=== PATIENT | female | born 1950 | race Caucasian/White ===

== ENCOUNTER 2023-11-24 13:20 | Inpatient (IN) | payer MEDICARE, OTHER ==
[~2023-11-24] VITALS: Ht 149.9 cm; Wt 97.1 kg
[2023-11-24 14:15] LABS: ABG BASE EXCESS -5.8 (-2.0-2.0); ABG HCO3 18.6 MMOL/L (22.0-26.0); ABG O2 SATURATION 96.5 % (95.0-99.0); ABG PARTIAL PRESSURE CO2 31.6 mmHg (35.0-45.0); ABG STANDARD HCO3 19.7 MMOL/L. (22.0-26.0); ABG TOTAL CO2 19.5 MMOL/L (23.0-31.0); ABG pH (ARTERIAL) 7.387 UNITS (7.350-7.450)
[2023-11-24 14:33] LABS: BASO % 0.5 % (0.0-1.0); EOS # 0.2 10^3/uL (0.0-0.5); EOS % 2.6 % (0.0-3.0); HEMATOCRIT 21.9 % (36.0-47.0); HEMOGLOBIN 7.1 g/dl (12.0-15.5); LYMPH # 1.1 10^3/uL (1.5-5.0); LYMPH % 18.5 % (24.0-44.0); MEAN CORPUSCULAR HEMOGLOBIN 28.6 pg (27.0-33.0); MEAN CORPUSCULAR HGB CONC 32.4 g/dl (32.0-36.5); MEAN CORPUSCULAR VOLUME 88.3 fl (80.0-96.0); MONO # 0.6 10^3/uL (0.0-0.8); MONO % 9.8 % (2.0-8.0); NEUTROPHILS % 67.7 % (36.0-66.0); PLATELET COUNT, AUTOMATED 281 10^3/uL (150-450); RED BLOOD COUNT 2.48 10^6/uL (4.00-5.40); WHITE BLOOD COUNT 5.8 10^3/uL (4.0-10.0)
[2023-11-24 14:53] LABS: CK-MB VALUE MASS 2.5 NG/ML (<3.6)
[2023-11-24 14:55] LABS: ALBUMIN 2.3 G/DL (3.2-5.2); ALKALINE PHOSPHATASE 138 U/L (46-116); ALT/SGPT 18 U/L (7.0-40); AST/SGOT 17 U/L (<34); BILIRUBIN,DIRECT < 0.1 MG/DL (<0.4); BILIRUBIN,TOTAL 0.3 MG/DL (0.3-1.2); BLOOD UREA NITROGEN 65 MG/DL (9-23); CALCIUM LEVEL 7.7 MG/DL (8.3-10.6); CARBON DIOXIDE LEVEL 21 MMOL/L (20-31); CHLORIDE LEVEL 111 MMOL/L (98-107); GLOMERULAR FILTRATION RATE 8.9 (>39); GLUCOSE, FASTING 113 MG/DL (74-106); POTASSIUM SERUM 4.5 MMOL/L (3.5-5.1); SODIUM LEVEL 142 MMOL/L (136-145); TOTAL PROTEIN 5.1 G/DL (5.7-8.2)
[2023-11-24 14:56] LABS: THYROXINE (T4) 11.9 UG/DL (4.5-10.9)
[2023-11-24 14:57] LABS: THYROID STIMULATING HORMONE 4.323 uIU/ML (0.55-4.78)
[2023-11-24 15:01] LABS: PROCALCITONIN 0.16 ng/ml
[2023-11-24 15:18] LABS: CPK CREATINE PHOSPHOKINASE 58 U/L (34-145); MB/CK RELATIVE INDEX 4.31 (< OR =4)
[2023-11-24] MEDS: cefTRIAXone SOD 1 GM in D5W MINI-BAG PLUS 50 ML IV ONE (16:15)
[2023-11-24] MEDS: hydrALAZINE 20MG/ML 1ML VIAL IV ONE (16:16)
[2023-11-24 16:21] LABS: CK-MB VALUE MASS 2.6 NG/ML (<3.6)
[2023-11-24] MEDS ORDERED: CALC1CAP PO (16:31)
[2023-11-24] MEDS ORDERED: ASPI81CH33 PO (16:31)
[2023-11-24] MEDS ORDERED: MONT10TA97 PO (16:31)
[2023-11-24] MEDS ORDERED: VIBE75TA PO (16:31)
[2023-11-24] MEDS ORDERED: PANT40TA29 PO (16:31)
[2023-11-24] MEDS ORDERED: GABA-284 PO (16:31)
[2023-11-24] MEDS ORDERED: CARV12.5 PO (16:31)
[2023-11-24] MEDS ORDERED: NIFE1TAB51 PO (16:31)
[2023-11-24] MEDS ORDERED: FERR325T3 PO (16:31)
[2023-11-24] MEDS ORDERED: NIFE90TA46 PO (16:31)
[2023-11-24] MEDS ORDERED: HYDR-161 PO ×2 (16:31)
[2023-11-24] MEDS ORDERED: BUPR1TAB52 PO (16:31)
[2023-11-24] MEDS ORDERED: AMIT25TA19 PO (16:31)
[2023-11-24] MEDS ORDERED: CRES40TA PO (16:31)
[2023-11-24] MEDS ORDERED: LEVO112T2 PO (16:31)
[2023-11-24] MEDS ORDERED: SEMA2PEN SQ (16:31)
[2023-11-24] MEDS: AZITHROMYCIN INJ 500 MG, VIAL MATE ADAPTER 1 EACH in D5W 250 ML IV ONE (17:14)
[2023-11-24] MEDS ORDERED: FUROSEMIDE 40MG/4ML VIAL IV ONE ×3 (18:10→18:15)
[2023-11-24] MEDS ORDERED: GLUCOSE 4GM CHEW TABLET PO PRN (18:20)
[2023-11-24] MEDS ORDERED: DEXTROSE 50% 50ML SYRINGE IV PRN (18:20)
[2023-11-24] MEDS ORDERED: GLUCAGON INJ 1MG VIAL SC PRN (18:20)
[2023-11-24] MEDS ORDERED: SENN-186 PO (18:52)
[2023-11-24] MEDS ORDERED: POLY17PO18 PO (18:52)
[2023-11-24] MEDS ORDERED: D 50CAP2 PO (18:52)
[2023-11-24] MEDS ORDERED: GABA-1171 PO (18:52)
[2023-11-24] MEDS ORDERED: PROB250C PO (18:52)
[2023-11-24] MEDS ORDERED: INSUHUMDS SC (18:52)
[2023-11-24] MEDS ORDERED: XALA0.007 OU (18:52)
[2023-11-24] MEDS ORDERED: FLON1SPR NARES (18:52)
[2023-11-24] MEDS ORDERED: CENT1TAB9 PO (18:52)
[2023-11-24] MEDS ORDERED: SODI650T PO (18:52)
[2023-11-24] MEDS ORDERED: ALBU8.5H INH (18:52)
[2023-11-24] MEDS ORDERED: FISH1CAP26 PO (18:52)
[2023-11-24] MEDS ORDERED: CREO3600 PO (18:52)
[2023-11-24] MEDS ORDERED: BRIM2OPD OD (18:52)
[2023-11-24] MEDS ORDERED: HOME MED LIST COMPLETE! XX SCH ×2 (19:05→20:15)
[2023-11-24] MEDS: FUROSEMIDE 100MG/10ML VIAL IV ONE (19:24)
[2023-11-24] MEDS ORDERED: MIRALAX *UNIT DOSE* 17GM PACKET PO PRN (19:50)
[2023-11-24] MEDS: INSULIN LISPRO (NovoLOG) PER UNIT SC SCH ×2 (19:53→21:07)
[2023-11-24] MEDS ORDERED: ALBUTEROL 90 MCG/ACT 8GM HFA INHALER INH PRN (20:00)
[2023-11-24] MEDS ORDERED: LEVO75TA4 PO (20:11)
[2023-11-24] MEDS: CARVedilol 12.5 MG TAB PO SCH (21:16)
[2023-11-24] MEDS: GABAPENTIN 100 MG CAP PO SCH (21:16)
[2023-11-24] MEDS: **hydrALAZINE** 50 MG TAB PO SCH (21:16)
[2023-11-24] MEDS: SENNA 8.6 MG TAB (SENOKOT) PO SCH (21:18)
[2023-11-24 22:34] VITALS: BP 166/61; TEMP 97.8
[2023-11-24 22:58] VITALS: BP 167/74; TEMP 98; O2SAT 96
[2023-11-24 23:46] VITALS: BP 176/88; TEMP 97.6; O2SAT 93
[2023-11-24 23:47] VITALS: BP 176/88; TEMP 97.6
[2023-11-25] VITALS (28 sets, daily range): BP systolic 160–220; BP diastolic 70–94; TEMP 97–99; O2SAT 91–98
[2023-11-25] MEDS: SODIUM BICARBONATE 325 MG TAB PO SCH (01:04)
[2023-11-25] MEDS: AMITRIPTYLINE 25MG TABLET PO SCH (01:04)
[2023-11-25] MEDS: OMEGA-3 1000MG CAPSULE PO SCH (01:04)
[2023-11-25] MEDS: HEPARIN SOD (PORCINE) 5000UNITS/ML 1ML VIAL/SYRINGE SC SCH (01:05)
[2023-11-25] MEDS: LATANOPROST 0.005% OPHTH SOLN 2.5 ML OU SCH (01:05)
[2023-11-25] MEDS: LABETALOL 100MG/20ML VIAL IV PRN (01:15)
[2023-11-25] MEDS: FUROSEMIDE 40MG/4ML VIAL IV ONE (02:31)
[2023-11-25] MEDS: hydrALAZINE 20MG/ML 1ML VIAL IV PRN (02:31)
[2023-11-25 04:52] LABS: HEMATOCRIT 23.6 % (36.0-47.0); HEMOGLOBIN 7.8 g/dl (12.0-15.5); MEAN CORPUSCULAR HEMOGLOBIN 28.9 pg (27.0-33.0); MEAN CORPUSCULAR HGB CONC 33.1 g/dl (32.0-36.5); MEAN CORPUSCULAR VOLUME 87.4 fl (80.0-96.0); PLATELET COUNT, AUTOMATED 239 10^3/uL (150-450); WHITE BLOOD COUNT 5.7 10^3/uL (4.0-10.0)
[2023-11-25 05:21] LABS: BLOOD UREA NITROGEN 62 MG/DL (9-23); CALCIUM LEVEL 7.5 MG/DL (8.3-10.6); CARBON DIOXIDE LEVEL 21 MMOL/L (20-31); CHLORIDE LEVEL 113 MMOL/L (98-107); CREATININE FOR GFR 4.97 MG/DL (0.55-1.30); GLOMERULAR FILTRATION RATE 9.1 (>39); GLUCOSE, FASTING 91 MG/DL (74-106); MAGNESIUM LEVEL 1.7 MG/DL (1.8-2.4); POTASSIUM SERUM 4.2 MMOL/L (3.5-5.1); SODIUM LEVEL 144 MMOL/L (136-145)
[2023-11-25] MEDS: LEVOTHYROXINE 75MCG TABLET (0.075MG) PO SCH (05:35)
[2023-11-25] MEDS: MAG SULF 1GM/100ML (MAG RUN) 1 GM in IV 1 EA IV ONE (06:57)
[2023-11-25] MEDS: FUROSEMIDE 100MG/10ML VIAL IV SCH (07:56)
[2023-11-25] MEDS: buPROPion (WELLBUTRIN SR) 100 MG SR TAB PO SCH (07:57)
[2023-11-25] MEDS: CALCIUM ACETATE 667MG GELCAP PO SCH (07:57)
[2023-11-25] MEDS: FERROUS SULFATE 325MG TAB PO SCH (07:57)
[2023-11-25] MEDS: ROSUVASTATIN 10 MG TAB (CRESTOR) PO SCH (07:57)
[2023-11-25] MEDS: MONTELUKAST 10 MG TAB PO SCH (07:58)
[2023-11-25] MEDS: PANTOPRAZOLE 40MG TAB (PROTONIX) PO SCH (07:59)
[2023-11-25] MEDS: BRIMONIDINE 0.15% OPHTH SOLN 5 ML OD SCH (07:59)
[2023-11-25] MEDS: FLUTICASONE PROP 0.05% NASAL SPRAY 16 GM (FLONASE) NARES SCH (07:59)
[2023-11-25] MEDS: ONDANSETRON 4MG 2ML VIAL IV PRN (08:09)
[2023-11-25 09:34] LABS: HEPATITIS B SURFACE ANTIBODY NEGATIVE (POSITIVE)
[2023-11-25 10:07] LABS: HEPATITIS B CORE ANTIBODY IGM NEGATIVE (NEGATIVE)
[2023-11-25 10:08] LABS: HEPATITIS C VIRUS ABY INDEX < 0.02 INDEX (<0.8)
[2023-11-26] VITALS (33 sets, daily range): BP systolic 130–194; BP diastolic 60–84; TEMP 97.4–98.3; O2SAT 16–98
[2023-11-26 05:35] LABS: HEMATOCRIT 21.6 % (36.0-47.0); HEMOGLOBIN 7.1 g/dl (12.0-15.5); MEAN CORPUSCULAR HEMOGLOBIN 29.2 pg (27.0-33.0); MEAN CORPUSCULAR HGB CONC 32.9 g/dl (32.0-36.5); MEAN CORPUSCULAR VOLUME 88.9 fl (80.0-96.0); PLATELET COUNT, AUTOMATED 203 10^3/uL (150-450); RED BLOOD COUNT 2.43 10^6/uL (4.00-5.40); WHITE BLOOD COUNT 5.5 10^3/uL (4.0-10.0)
[2023-11-26 06:00] LABS: CALCIUM LEVEL 7.8 MG/DL (8.3-10.6); CREATININE FOR GFR 5.17 MG/DL (0.55-1.30); GLOMERULAR FILTRATION RATE 8.7 (>39); MAGNESIUM LEVEL 1.8 MG/DL (1.8-2.4); POTASSIUM SERUM 4.3 MMOL/L (3.5-5.1)
[2023-11-26 08:30] LABS: PHOSPHORUS LEVEL 5.8 MG/DL (2.4-5.1)
[2023-11-26] MEDS: ACETAMINOPHEN 500 MG TAB PO PRN (22:58)
[2023-11-27] VITALS (31 sets, daily range): BP systolic 164–198; BP diastolic 70–88; TEMP 97.1–100.1; O2SAT 88–96
[2023-11-27 04:14] LABS: HEMATOCRIT 27.1 % (36.0-47.0); HEMOGLOBIN 8.9 g/dl (12.0-15.5); MEAN CORPUSCULAR HEMOGLOBIN 28.7 pg (27.0-33.0); MEAN CORPUSCULAR HGB CONC 32.8 g/dl (32.0-36.5); MEAN CORPUSCULAR VOLUME 87.4 fl (80.0-96.0); PLATELET COUNT, AUTOMATED 169 10^3/uL (150-450); WHITE BLOOD COUNT 5.6 10^3/uL (4.0-10.0)
[2023-11-27 04:38] LABS: CALCIUM LEVEL 7.4 MG/DL (8.3-10.6); CREATININE FOR GFR 5.4 MG/DL (0.55-1.30); GLOMERULAR FILTRATION RATE 8.3 (>39); MAGNESIUM LEVEL 1.7 MG/DL (1.8-2.4); POTASSIUM SERUM 4.4 MMOL/L (3.5-5.1)
[2023-11-27] MEDS: MAG SULF 1GM/100ML (MAG RUN) 1 GM in IV 1 EA IV ONE (09:08)
[2023-11-27 11:08] LABS: PERCENT SATURATION 14.2 % (13.2-45.0)
[2023-11-27 11:11] LABS: FERRITIN 720.3 NG/ML (7.3-270.7)
[2023-11-28] VITALS (13 sets, daily range): BP systolic 150–186; BP diastolic 64–80; TEMP 97.6–99.1; O2SAT 88–96
[2023-11-28] MEDS ORDERED: SODIUM CHLORIDE 0.9% 1000ML IV PRN (00:10)
[2023-11-28] MEDS ORDERED: HEPARIN 1,000UNITS/ML 10ML VIAL (FOR RADIOLOGY & DIALYSIS ONLY) IV PRN (00:10)
[2023-11-28] MEDS ORDERED: HEPARIN 1,000UNITS/ML 10ML VIAL (FOR RADIOLOGY & DIALYSIS ONLY) XX SCH (00:10)
[2023-11-28 04:14] LABS: HEMATOCRIT 27.7 % (36.0-47.0); HEMOGLOBIN 9.1 g/dl (12.0-15.5); MEAN CORPUSCULAR HEMOGLOBIN 28.5 pg (27.0-33.0); MEAN CORPUSCULAR HGB CONC 32.9 g/dl (32.0-36.5); MEAN CORPUSCULAR VOLUME 86.8 fl (80.0-96.0); PLATELET COUNT, AUTOMATED 177 10^3/uL (150-450); RED BLOOD COUNT 3.19 10^6/uL (4.00-5.40)
[2023-11-28 04:34] LABS: CALCIUM LEVEL 8.3 MG/DL (8.3-10.6); CREATININE FOR GFR 5.41 MG/DL (0.55-1.30); GLOMERULAR FILTRATION RATE 8.3 (>39); MAGNESIUM LEVEL 1.9 MG/DL (1.8-2.4); POTASSIUM SERUM 4.5 MMOL/L (3.5-5.1)
[2023-11-28] MEDS ORDERED: HEPARIN 1,000UNITS/ML 10ML VIAL (FOR RADIOLOGY & DIALYSIS ONLY) As Ordered ONE (08:57)
[2023-11-28] MEDS ORDERED: LIDOCAINE W/EPINEPHRINE 1% 20ML VIAL As Ordered ONE (08:58)
[2023-11-28] MEDS ORDERED: LIDOCAINE 1% MDV 20ML VIAL As Ordered ONE (08:58)
[2023-11-28] MEDS ORDERED: VANCOMYCIN 1000MG/20ML VIAL As Ordered ONE (09:37)
[2023-11-28] MEDS ORDERED: fentaNYL 100 MCG/2 ML INJECTION As Ordered ONE (09:40)
[2023-11-28] MEDS ORDERED: MIDAZOLAM INJ 2MG/2ML VIAL As Ordered ONE (09:40)
[2023-11-28] MEDS: VANCOMYCIN HCL 1,000 MG, VIAL MATE ADAPTER 1 EACH in D5W 250 ML IV ONE (09:49)
[2023-11-29] VITALS (18 sets, daily range): BP systolic 146–180; BP diastolic 62–77; TEMP 97.6–98.9; O2SAT 90–96
[2023-11-29 05:33] LABS: HEMATOCRIT 29.1 % (36.0-47.0); HEMOGLOBIN 9.3 g/dl (12.0-15.5); MEAN CORPUSCULAR HEMOGLOBIN 28.3 pg (27.0-33.0); MEAN CORPUSCULAR VOLUME 88.4 fl (80.0-96.0); PLATELET COUNT, AUTOMATED 184 10^3/uL (150-450); RED BLOOD COUNT 3.29 10^6/uL (4.00-5.40); WHITE BLOOD COUNT 6.1 10^3/uL (4.0-10.0)
[2023-11-29 05:58] LABS: CALCIUM LEVEL 7.9 MG/DL (8.3-10.6); CREATININE FOR GFR 4.1 MG/DL (0.55-1.30); GLOMERULAR FILTRATION RATE 11.4 (>39); MAGNESIUM LEVEL 1.7 MG/DL (1.8-2.4); POTASSIUM SERUM 4.2 MMOL/L (3.5-5.1)
[2023-11-29] MEDS ORDERED: HEPARIN 1,000UNITS/ML 10ML VIAL (FOR RADIOLOGY & DIALYSIS ONLY) XX SCH (06:30)
[2023-11-29] MEDS ORDERED: SODIUM CHLORIDE 0.9% 1000ML IV PRN (06:30)
[2023-11-29] MEDS ORDERED: HEPARIN 1,000UNITS/ML 10ML VIAL (FOR RADIOLOGY & DIALYSIS ONLY) IV PRN (06:30)
[2023-11-29] MEDS: IRON SUCROSE 100MG 5ML VIAL IV SCH (08:42)
[2023-11-29] MEDS: DARBEPOETIN 100MCG/0.5ML *DIALYSIS* SYRINGE IV SCH (10:28)
[2023-11-29] MEDS: LIDOCAINE 5% (LIDODERM) PATCH TD ONE (21:57)
[2023-11-30] VITALS (12 sets, daily range): BP systolic 136–188; BP diastolic 67–72; TEMP 97.4–98.7; O2SAT 90–98
[2023-11-30 05:44] LABS: HEMATOCRIT 30.6 % (36.0-47.0); HEMOGLOBIN 9.8 g/dl (12.0-15.5); MEAN CORPUSCULAR HEMOGLOBIN 28.2 pg (27.0-33.0); MEAN CORPUSCULAR VOLUME 87.9 fl (80.0-96.0); PLATELET COUNT, AUTOMATED 205 10^3/uL (150-450); RED BLOOD COUNT 3.48 10^6/uL (4.00-5.40); WHITE BLOOD COUNT 8.5 10^3/uL (4.0-10.0)
[2023-11-30 06:09] LABS: CALCIUM LEVEL 8.6 MG/DL (8.3-10.6); CREATININE FOR GFR 3.05 MG/DL (0.55-1.30); GLOMERULAR FILTRATION RATE 16.1 (>39); MAGNESIUM LEVEL 1.7 MG/DL (1.8-2.4); POTASSIUM SERUM 4.2 MMOL/L (3.5-5.1)
[2023-11-30] MEDS ORDERED: HEPARIN 1,000UNITS/ML 10ML VIAL (FOR RADIOLOGY & DIALYSIS ONLY) XX SCH (06:40)
[2023-11-30] MEDS ORDERED: HEPARIN 1,000UNITS/ML 10ML VIAL (FOR RADIOLOGY & DIALYSIS ONLY) IV PRN (06:40)
[2023-11-30] MEDS ORDERED: SODIUM CHLORIDE 0.9% 1000ML IV PRN (06:40)
[2023-11-30] MEDS: GABAPENTIN 100 MG CAP PO SCH (09:00)
[2023-11-30] MEDS: MAG SULF 1GM/100ML (MAG RUN) 1 GM in IV 1 EA IV ONE (12:08)
[2023-11-30] MEDS: **hydrALAZINE** 50 MG TAB PO SCH (15:06)
[2023-12-01 00:41] VITALS: BP 165/70; TEMP 97.7; O2SAT 93
[2023-12-01 03:31] VITALS: BP 144/68; TEMP 98.6; O2SAT 94
[2023-12-01 06:57] LABS: HEMATOCRIT 29.9 % (36.0-47.0); HEMOGLOBIN 9.6 g/dl (12.0-15.5); MEAN CORPUSCULAR HEMOGLOBIN 28.6 pg (27.0-33.0); MEAN CORPUSCULAR HGB CONC 32.1 g/dl (32.0-36.5); PLATELET COUNT, AUTOMATED 206 10^3/uL (150-450); RED BLOOD COUNT 3.36 10^6/uL (4.00-5.40); WHITE BLOOD COUNT 8.3 10^3/uL (4.0-10.0)
[2023-12-01 07:28] LABS: CALCIUM LEVEL 9.1 MG/DL (8.3-10.6); CREATININE FOR GFR 2.72 MG/DL (0.55-1.30); GLOMERULAR FILTRATION RATE 18.3 (>39); MAGNESIUM LEVEL 1.8 MG/DL (1.8-2.4); POTASSIUM SERUM 4.2 MMOL/L (3.5-5.1)
[2023-12-01 07:31] VITALS: BP 190/70; TEMP 97.7; O2SAT 94
[2023-12-01 08:36] VITALS: BP 158/70
[2023-12-01 09:50] VITALS: BP 158/70
[2023-12-01] MEDS ORDERED: HYDR100T PO (11:10)
[2023-12-01 12:26] VITALS: BP 150/67; TEMP 97.6; O2SAT 90
== END 2023-12-01 13:33 | disposition home health service (06) | DRG 291 ==
LOC: M ED 13:20 → EDBD 13:20 → M ED INP 17:21 → ENRESERV 22:28 → M PCU 23:34
PROVIDERS: ADMIT Internal Medicine; ATTEND Internal Medicine
PROC: 30233N1 Transfusion of Nonautologous Red Blood Cells into Peripheral Vein, Percutaneous Approach (ICD-10-PCS; 2023-11-24)
PROC: 05HY33Z Insertion of Infusion Device into Upper Vein, Percutaneous Approach (ICD-10-PCS; 2023-11-28)
PROC: 02HV33Z Insertion of Infusion Device into Superior Vena Cava, Percutaneous Approach (ICD-10-PCS; 2023-11-28)
PROC: 6A601ZZ Phototherapy of Skin, Multiple (ICD-10-PCS; 2023-11-28)
PROC: 0JH63XZ Insertion of Tunneled Vascular Access Device into Chest Subcutaneous Tissue and Fascia, Percutaneous Approach (ICD-10-PCS; principal; 2023-11-28 15:00)
DX: I13.2 Hypertensive heart and chronic kidney disease with heart failure and with stage 5 chronic kidney disease, or end stage renal disease (principal); N18.6 End stage renal disease; I50.31 Acute diastolic (congestive) heart failure; I16.9 Hypertensive crisis, unspecified; Z68.42 Body mass index [BMI] 45.0-49.9, adult; E66.01 Morbid (severe) obesity due to excess calories; E11.22 Type 2 diabetes mellitus with diabetic chronic kidney disease; E11.40 Type 2 diabetes mellitus with diabetic neuropathy, unspecified; E03.9 Hypothyroidism, unspecified; D63.1 Anemia in chronic kidney disease; K21.9 Gastro-esophageal reflux disease without esophagitis; Z85.42 Personal history of malignant neoplasm of other parts of uterus; Z88.2 Allergy status to sulfonamides; Z88.0 Allergy status to penicillin; Z79.899 Other long term (current) drug therapy; Z79.4 Long term (current) use of insulin; Z92.21 Personal history of antineoplastic chemotherapy; Z92.3 Personal history of irradiation; E78.5 Hyperlipidemia, unspecified

== ENCOUNTER 2023-12-04 14:29 | Inpatient (IN) | payer MEDICARE, OTHER ==
[~2023-12-04] VITALS: Ht 149.9 cm; Wt 97.2 kg
[~2023-12-04 14:29] MED LIST: ALBU8.5H INH; AMIT25TA19 PO; ASPI81CH33 PO; BRIM2OPD OD; BUPR1TAB52 PO; CALC1CAP PO; CARV12.5 PO; CENT1TAB9 PO; CREO3600 PO; CRES40TA PO; D 50CAP2 PO; FERR325T3 PO; FISH1CAP26 PO; FLON1SPR NARES; GABA-1171 PO; GABA-284 PO; HYDR-161 PO; HYDR100T PO; INSUHUMDS SC; LEVO112T2 PO; LEVO75TA4 PO; MONT10TA97 PO; NIFE1TAB51 PO; NIFE90TA46 PO; PANT40TA29 PO; POLY17PO18 PO; PROB250C PO; SEMA2PEN SQ; SENN-186 PO; SODI650T PO; VIBE75TA PO; XALA0.007 OU
[2023-12-04 16:11] LABS: BASO # 0.1 10^3/uL (0.0-0.2); BASO % 0.5 % (0.0-1.0); EOS # 0.3 10^3/uL (0.0-0.5); EOS % 1.9 % (0.0-3.0); HEMATOCRIT 33.8 % (36.0-47.0); HEMOGLOBIN 10.8 g/dl (12.0-15.5); LYMPH # 0.6 10^3/uL (1.5-5.0); LYMPH % 3.2 % (24.0-44.0); MEAN CORPUSCULAR HEMOGLOBIN 28.3 pg (27.0-33.0); MEAN CORPUSCULAR VOLUME 88.5 fl (80.0-96.0); MONO # 1.4 10^3/uL (0.0-0.8); MONO % 8.3 % (2.0-8.0); NEUTROPHILS % 81.2 % (36.0-66.0); PLATELET COUNT, AUTOMATED 277 10^3/uL (150-450); RED BLOOD COUNT 3.82 10^6/uL (4.00-5.40); WHITE BLOOD COUNT 17.2 10^3/uL (4.0-10.0)
[2023-12-04 16:26] LABS: LIPASE 18 U/L (12-53)
[2023-12-04 16:28] LABS: ALKALINE PHOSPHATASE 146 U/L (46-116); ALT/SGPT 14 U/L (7.0-40); AST/SGOT 17 U/L (<34); BILIRUBIN,DIRECT 0.1 MG/DL (<0.4); BILIRUBIN,TOTAL 0.3 MG/DL (0.3-1.2); BLOOD UREA NITROGEN 26 MG/DL (9-23); CALCIUM LEVEL 7.2 MG/DL (8.3-10.6); CARBON DIOXIDE LEVEL 28 MMOL/L (20-31); CHLORIDE LEVEL 101 MMOL/L (98-107); CK-MB VALUE MASS < 1.0 NG/ML (<3.6); CPK CREATINE PHOSPHOKINASE 19 U/L (34-145); CREATININE FOR GFR 3.47 MG/DL (0.55-1.30); GLOMERULAR FILTRATION RATE 13.8 (>39); GLUCOSE, FASTING 119 MG/DL (74-106); INR 1.24; MB/CK RELATIVE INDEX 5.26 (< OR =4); PARTIAL THROMBOPLASTIN TIME 35.2 SECONDS (24.8-34.2); POTASSIUM SERUM 3.3 MMOL/L (3.5-5.1); PROTHROMBIN TIME 15.2 SECONDS (12.5-14.5); SODIUM LEVEL 136 MMOL/L (136-145); TOTAL PROTEIN 5.2 G/DL (5.7-8.2)
[2023-12-04] MEDS: ONDANSETRON 4MG 2ML VIAL IV ONE (16:36)
[2023-12-04] MEDS ORDERED: VANCOMYCIN 125MG CAPSULE PO SCH (18:00)
[2023-12-04] MEDS ORDERED: DEXTROSE 50% 50ML SYRINGE IV PRN (19:00)
[2023-12-04] MEDS ORDERED: GLUCOSE 4 GM CHEW PO PRN (19:00)
[2023-12-04] MEDS ORDERED: GLUCAGON INJ 1MG VIAL SC PRN (19:00)
[2023-12-04] MEDS: MORPHINE 2 MG/ML 1ML VIAL IV ONE (19:09)
[2023-12-04] MEDS: NS 500 ML IV ONE (19:15)
[2023-12-04 19:21] LABS: MAGNESIUM LEVEL 1.7 MG/DL (1.8-2.4)
[2023-12-04] MEDS: POTASSIUM CHLORIDE 10MEQ SR TABLET PO ONE (19:31)
[2023-12-04] MEDS: metroNIDAZOLE 500 MG in IV 1 EA IV ONE (19:32)
[2023-12-04] MEDS: CIPROFLOXACIN 200 MG in IV 1 EA IV ONE (20:34)
[2023-12-04] MEDS: NS 1,000 ML IV SCH (20:34)
[2023-12-04] MEDS ORDERED: HYDR100T26 PO (20:52)
[2023-12-04] MEDS ORDERED: HOME MED LIST COMPLETE! XX SCH (20:55)
[2023-12-04] MEDS: ACETAMINOPHEN TAB 650MG DOSE (2X325MG) PO ONE (21:22)
[2023-12-04] MEDS: LACTOBACILLUS ACIDOPHILUS CAP (BACID) PO SCH (21:22)
[2023-12-04] MEDS: DOCUSATE SODIUM 100MG CAPSULE PO SCH (21:23)
[2023-12-04 21:38] VITALS: BP 138/63; TEMP 102.3; O2SAT 96
[2023-12-04 22:00] VITALS: O2SAT 97
[2023-12-04 22:03] LABS: IRON (FE) 9 UG/DL (50-170); PHOSPHORUS LEVEL 2.5 MG/DL (2.4-5.1)
[2023-12-04 22:05] LABS: FOLATE > 24.00 NG/ML (>5.4)
[2023-12-04 22:06] LABS: VITAMIN B12 LEVEL 1016 PG/ML (211-911)
[2023-12-04] MEDS: CEFEPIME HCL 1 GM in D5W MINI-BAG PLUS 50 ML IV SCH (22:09)
[2023-12-04 22:14] LABS: PROCALCITONIN 0.54 ng/ml
[2023-12-04 23:00] VITALS: O2SAT 96
[2023-12-04 23:12] VITALS: BP 126/98; TEMP 101.2; O2SAT 97
[2023-12-04] MEDS: INSULIN LISPRO (NovoLOG) PER UNIT SC SCH (23:20)
[2023-12-05] VITALS (25 sets, daily range): BP systolic 74–172; BP diastolic 32–84; TEMP 97.9–102.1; O2SAT 88–100
[2023-12-05] MEDS ORDERED: ALBUTEROL 90 MCG/ACT 8GM HFA INHALER INH PRN (00:05)
[2023-12-05] MEDS: GABAPENTIN 100 MG CAP PO SCH (00:35)
[2023-12-05] MEDS: MORPHINE 2 MG/ML 1ML VIAL IV ONE (00:35)
[2023-12-05] MEDS: **hydrALAZINE** 50 MG TAB PO SCH (00:36)
[2023-12-05] MEDS: AMITRIPTYLINE 25MG TABLET PO SCH (01:05)
[2023-12-05] MEDS: LATANOPROST 0.005% OPHTH SOLN 2.5 ML OU SCH (01:06)
[2023-12-05] MEDS: CARVedilol 12.5 MG TAB PO SCH (01:06)
[2023-12-05] MEDS ORDERED: MORPHINE 2 MG/ML 1ML VIAL IV PRN (03:00)
[2023-12-05] MEDS: metroNIDAZOLE 500 MG in IV 1 EA IV SCH (03:16)
[2023-12-05] MEDS: LIDOCAINE 5% (LIDODERM) PATCH TD SCH (03:17)
[2023-12-05] MEDS: LEVOTHYROXINE 75MCG TABLET (0.075MG) PO SCH (05:32)
[2023-12-05 05:37] LABS: HEMATOCRIT 27.3 % (36.0-47.0); MEAN CORPUSCULAR HEMOGLOBIN 28.3 pg (27.0-33.0); MEAN CORPUSCULAR HGB CONC 31.5 g/dl (32.0-36.5); MEAN CORPUSCULAR VOLUME 89.8 fl (80.0-96.0); PLATELET COUNT, AUTOMATED 211 10^3/uL (150-450); RED BLOOD COUNT 3.04 10^6/uL (4.00-5.40); WHITE BLOOD COUNT 15.2 10^3/uL (4.0-10.0)
[2023-12-05 05:51] LABS: HEMOGLOBIN 8.6 g/dl (12.0-15.5)
[2023-12-05] MEDS ORDERED: HEPARIN 1,000UNITS/ML 10ML VIAL (FOR RADIOLOGY & DIALYSIS ONLY) IV PRN (06:00)
[2023-12-05] MEDS ORDERED: SODIUM CHLORIDE 0.9% 1000ML IV PRN (06:00)
[2023-12-05] MEDS ORDERED: HEPARIN 1,000UNITS/ML 10ML VIAL (FOR RADIOLOGY & DIALYSIS ONLY) XX SCH (06:00)
[2023-12-05 06:10] LABS: PROCALCITONIN 0.91 ng/ml
[2023-12-05 06:11] LABS: ALBUMIN 1.4 G/DL (3.2-5.2); ALKALINE PHOSPHATASE 110 U/L (46-116); ALT/SGPT < 9 U/L (7.0-40); AST/SGOT 12 U/L (<34); BILIRUBIN,TOTAL 0.2 MG/DL (0.3-1.2); BLOOD UREA NITROGEN 32 MG/DL (9-23); CALCIUM LEVEL 6.7 MG/DL (8.3-10.6); CARBON DIOXIDE LEVEL 27 MMOL/L (20-31); CHLORIDE LEVEL 103 MMOL/L (98-107); CREATININE FOR GFR 3.72 MG/DL (0.55-1.30); GLOMERULAR FILTRATION RATE 12.8 (>39); GLUCOSE, FASTING 95 MG/DL (74-106); MAGNESIUM LEVEL 1.6 MG/DL (1.8-2.4); POTASSIUM SERUM 3.4 MMOL/L (3.5-5.1); SODIUM LEVEL 137 MMOL/L (136-145); TOTAL PROTEIN 4.1 G/DL (5.7-8.2)
[2023-12-05] MEDS: CREON-12 CAPSULE PO SCH (06:52)
[2023-12-05] MEDS: CALCIUM ACETATE 667MG GELCAP PO SCH (06:52)
[2023-12-05] MEDS: SENNA 8.6 MG TAB (SENOKOT) PO SCH (07:40)
[2023-12-05] MEDS ORDERED: FERROUS SULFATE 325MG TAB PO SCH (09:00)
[2023-12-05] MEDS ORDERED: CALCIUM ACETATE 667MG GELCAP PO SCH (09:00)
[2023-12-05] MEDS ORDERED: SODIUM BICARBONATE 325 MG TAB PO SCH (09:00)
[2023-12-05] MEDS: FLUTICASONE PROP 0.05% NASAL SPRAY 16 GM (FLONASE) NARES SCH (09:05)
[2023-12-05] MEDS: BRIMONIDINE 0.15% OPHTH SOLN 5 ML OD SCH (09:06)
[2023-12-05] MEDS: PERCOCET 5MG/325MG TAB PO PRN (09:07)
[2023-12-05] MEDS: FIDAXOMICIN 200 MG TAB (DIFICID) PO SCH (14:06)
[2023-12-05] MEDS: MONTELUKAST 10 MG TAB PO SCH (14:07)
[2023-12-05] MEDS: HEPARIN SOD (PORCINE) 5000UNITS/ML 1ML VIAL/SYRINGE SC SCH (14:08)
[2023-12-05] MEDS: PANTOPRAZOLE 40MG TAB (PROTONIX) PO SCH (14:08)
[2023-12-05] MEDS: buPROPion (WELLBUTRIN SR) 100 MG SR TAB PO SCH (14:09)
[2023-12-05] MEDS: ACETAMINOPHEN TAB 650MG DOSE (2X325MG) PO PRN (17:49)
[2023-12-05] MEDS ORDERED: CEFEPIME HCL 2 GM in D5W MINI-BAG PLUS 50 ML IV SCH (18:55)
[2023-12-05] MEDS ORDERED: VANCOMYCIN HCL 1,000 MG, VIAL MATE ADAPTER 1 EACH in D5W 250 ML IV SCH (19:00)
[2023-12-05] MEDS: CEFEPIME HCL 1 GM in D5W MINI-BAG PLUS 50 ML IV SCH (20:19)
[2023-12-05] MEDS: VANCOMYCIN HCL 1,000 MG, VIAL MATE ADAPTER 1 EACH in D5W 250 ML IV ONE ×2 (21:34→22:50)
[2023-12-05] MEDS: ACETAMINOPHEN TAB 650MG DOSE (2X325MG) PO ONE (21:37)
[2023-12-05] MEDS: UNRESOLVED PATIENT OWN MED ORDER XX SCH (23:19)
[2023-12-06] VITALS (9 sets, daily range): BP systolic 90–156; BP diastolic 38–68; TEMP 98.2–101.3; O2SAT 92–97
[2023-12-06] MEDS: NS 300 ML IV ONE (00:20)
[2023-12-06] MEDS: NS 500 ML IV ONE ×2 (11:41→14:21)
[2023-12-06] MEDS: MIDODRINE 5 MG TAB PO SCH (11:59)
[2023-12-06 13:56] LABS: IONIZED CALCIUM 4.3 MG/DL (4.5-5.3)
[2023-12-06 14:02] LABS: HEMATOCRIT 26.4 % (36.0-47.0); HEMOGLOBIN 8.6 g/dl (12.0-15.5); MEAN CORPUSCULAR HEMOGLOBIN 29.1 pg (27.0-33.0); MEAN CORPUSCULAR HGB CONC 32.6 g/dl (32.0-36.5); MEAN CORPUSCULAR VOLUME 89.2 fl (80.0-96.0); PLATELET COUNT, AUTOMATED 211 10^3/uL (150-450); RED BLOOD COUNT 2.96 10^6/uL (4.00-5.40); WHITE BLOOD COUNT 21.6 10^3/uL (4.0-10.0)
[2023-12-06] MEDS ORDERED: **hydrALAZINE** 50 MG TAB PO PRN (14:15)
[2023-12-06] MEDS: MIDODRINE 5 MG TAB PO ONE (14:21)
[2023-12-06 14:34] LABS: ALBUMIN 1.3 G/DL (3.2-5.2); ALKALINE PHOSPHATASE 137 U/L (46-116); ALT/SGPT < 9 U/L (7.0-40); AST/SGOT 9 U/L (<34); BILIRUBIN,TOTAL < 0.2 MG/DL (0.3-1.2); BLOOD UREA NITROGEN 25 MG/DL (9-23); CALCIUM LEVEL 7.4 MG/DL (8.3-10.6); CARBON DIOXIDE LEVEL 26 MMOL/L (20-31); CHLORIDE LEVEL 100 MMOL/L (98-107); CREATININE FOR GFR 3.07 MG/DL (0.55-1.30); GLOMERULAR FILTRATION RATE 15.9 (>39); GLUCOSE, FASTING 143 MG/DL (74-106); MAGNESIUM LEVEL 1.6 MG/DL (1.8-2.4); POTASSIUM SERUM 3.5 MMOL/L (3.5-5.1); SODIUM LEVEL 131 MMOL/L (136-145); TOTAL PROTEIN 4.1 G/DL (5.7-8.2)
[2023-12-06] MEDS: POTASSIUM CHLORIDE 10MEQ SR TABLET PO ONE (15:16)
[2023-12-06] MEDS: MAG SULF 1GM/100ML (MAG RUN) 1 GM in IV 1 EA IV ONE (15:17)
[2023-12-06 15:29] LABS: ANISOCYTOSIS 1+; BASOPHILS 3 % (0-1); EOSINOPHILS 2 % (0-3); HYPOCHROMASIA 1+; LYMPHOCYTES 5 % (16-44); MONOCYTES 3 % (0-5); NEUTROPHILS 83 % (28-66); PLATELET ESTIMATE NORMAL (NORMAL); POIKILOCYTOSIS 1+
[2023-12-06 15:30] LABS: POLYCHROMASIA 1+
[2023-12-06] MEDS: ONDANSETRON 4MG 2ML VIAL IV ONE (18:37)
[2023-12-07 02:00] VITALS: BP 94/44; TEMP 98; O2SAT 92
[2023-12-07 02:39] VITALS: BP 134/66
[2023-12-07 06:00] VITALS: BP 126/58; TEMP 98.6; O2SAT 93
[2023-12-07] MEDS ORDERED: HEPARIN 1,000UNITS/ML 10ML VIAL (FOR RADIOLOGY & DIALYSIS ONLY) IV PRN (06:00)
[2023-12-07] MEDS ORDERED: SODIUM CHLORIDE 0.9% 1000ML IV PRN (06:00)
[2023-12-07] MEDS ORDERED: HEPARIN 1,000UNITS/ML 10ML VIAL (FOR RADIOLOGY & DIALYSIS ONLY) XX SCH (06:00)
[2023-12-07 08:01] LABS: HEMATOCRIT 26.3 % (36.0-47.0); HEMOGLOBIN 8.5 g/dl (12.0-15.5); MEAN CORPUSCULAR HEMOGLOBIN 28.4 pg (27.0-33.0); MEAN CORPUSCULAR HGB CONC 32.3 g/dl (32.0-36.5); PLATELET COUNT, AUTOMATED 212 10^3/uL (150-450); RED BLOOD COUNT 2.99 10^6/uL (4.00-5.40); WHITE BLOOD COUNT 24.3 10^3/uL (4.0-10.0)
[2023-12-07 08:17] LABS: VANCOMYCIN RANDOM 18.6 UG/ML
[2023-12-07 08:18] LABS: CALCIUM LEVEL 7.4 MG/DL (8.3-10.6); CREATININE FOR GFR 4.01 MG/DL (0.55-1.30); GLOMERULAR FILTRATION RATE 11.7 (>39); MAGNESIUM LEVEL 1.7 MG/DL (1.8-2.4); POTASSIUM SERUM 3.6 MMOL/L (3.5-5.1)
[2023-12-07 08:30] LABS: ATYPICAL LYMPH 1 % (0-5); BASOPHILS 1 % (0-1); LYMPHOCYTES 8 % (16-44); MONOCYTES 8 % (0-5); NEUTROPHILS 76 % (28-66)
[2023-12-07 08:31] LABS: ANISOCYTOSIS 1+; HYPOCHROMASIA 1+; PLATELET ESTIMATE NORMAL (NORMAL); POLYCHROMASIA 1+
[2023-12-07 08:33] LABS: TEAR DROP CELLS 1+
[2023-12-07] MEDS ORDERED: ISOVUE-370 76% 100ML VIAL As Ordered ONE (08:48)
[2023-12-07 09:22] LABS: PROCALCITONIN 1.76 ng/ml
[2023-12-07] MEDS ORDERED: GASTROGRAFIN SOLUTION 30ML As Ordered ONE (12:54)
[2023-12-07] MEDS: GASTROGRAFIN SOLUTION 30ML PO SCH (13:08)
[2023-12-07] MEDS: CALCIUM ACETATE 667MG GELCAP PO SCH (13:09)
[2023-12-07 14:00] VITALS: BP 110/46; TEMP 98.5; O2SAT 88
[2023-12-07] MEDS ORDERED: VANCOMYCIN HCL 1,000 MG, VIAL MATE ADAPTER 1 EACH in D5W 250 ML IV SCH (16:00)
[2023-12-07 18:58] VITALS: BP 100/68; TEMP 101.5; O2SAT 92
[2023-12-07 20:55] VITALS: BP 142/58; TEMP 100.1; O2SAT 91
[2023-12-08] VITALS (8 sets, daily range): BP systolic 104–130; BP diastolic 50–78; TEMP 98.6–102; O2SAT 89–96
[2023-12-08 06:46] LABS: BASO # 0.2 10^3/uL (0.0-0.2); BASO % 0.6 % (0.0-1.0); EOS # 0.2 10^3/uL (0.0-0.5); EOS % 0.7 % (0.0-3.0); HEMATOCRIT 25.9 % (36.0-47.0); HEMOGLOBIN 8.3 g/dl (12.0-15.5); LYMPH # 0.7 10^3/uL (1.5-5.0); LYMPH % 2.8 % (24.0-44.0); MEAN CORPUSCULAR HEMOGLOBIN 28.3 pg (27.0-33.0); MEAN CORPUSCULAR VOLUME 88.4 fl (80.0-96.0); MONO # 1.7 10^3/uL (0.0-0.8); NEUTROPHILS # 20.4 10^3/uL (1.5-8.5); NEUTROPHILS % 82.8 % (36.0-66.0); PLATELET COUNT, AUTOMATED 214 10^3/uL (150-450); RED BLOOD COUNT 2.93 10^6/uL (4.00-5.40); WHITE BLOOD COUNT 24.6 10^3/uL (4.0-10.0)
[2023-12-08 07:09] LABS: CALCIUM LEVEL 7.6 MG/DL (8.3-10.6); CREATININE FOR GFR 2.86 MG/DL (0.55-1.30); GLOMERULAR FILTRATION RATE 17.3 (>39); MAGNESIUM LEVEL 1.7 MG/DL (1.8-2.4); POTASSIUM SERUM 3.3 MMOL/L (3.5-5.1)
[2023-12-08 11:39] LABS: C REACTIVE PROTEIN QUANTITATIV 26.3 MG/DL (<1.0)
[2023-12-08 12:12] LABS: PROCALCITONIN 4.36 ng/ml
[2023-12-08] MEDS: POTASSIUM CHLORIDE 10MEQ SR TABLET PO ONE (14:38)
[2023-12-08] MEDS: MAG SULF 1GM/100ML (MAG RUN) 1 GM in IV 1 EA IV ONE (14:39)
[2023-12-08 15:17] LABS: ERYTHROCYTE SEDIMENTATION RATE 46 mm/hr (0-30)
[2023-12-09 02:13] VITALS: BP 102/58; TEMP 99.9; O2SAT 93
[2023-12-09] MEDS ORDERED: HEPARIN 1,000UNITS/ML 10ML VIAL (FOR RADIOLOGY & DIALYSIS ONLY) XX SCH (05:35)
[2023-12-09] MEDS ORDERED: HEPARIN 1,000UNITS/ML 10ML VIAL (FOR RADIOLOGY & DIALYSIS ONLY) IV PRN (05:35)
[2023-12-09] MEDS ORDERED: SODIUM CHLORIDE 0.9% 1000ML IV PRN (05:35)
[2023-12-09 06:14] VITALS: BP 110/58; TEMP 99.6; O2SAT 90
[2023-12-09 07:00] LABS: HEMATOCRIT 27.3 % (36.0-47.0); HEMOGLOBIN 8.9 g/dl (12.0-15.5); MEAN CORPUSCULAR HEMOGLOBIN 28.9 pg (27.0-33.0); MEAN CORPUSCULAR HGB CONC 32.6 g/dl (32.0-36.5); MEAN CORPUSCULAR VOLUME 88.6 fl (80.0-96.0); PLATELET COUNT, AUTOMATED 240 10^3/uL (150-450); RED BLOOD COUNT 3.08 10^6/uL (4.00-5.40); WHITE BLOOD COUNT 27.4 10^3/uL (4.0-10.0)
[2023-12-09 07:32] LABS: CREATININE FOR GFR 3.9 MG/DL (0.55-1.30); GLOMERULAR FILTRATION RATE 12.1 (>39); POTASSIUM SERUM 4.1 MMOL/L (3.5-5.1)
[2023-12-09 07:42] LABS: ATYPICAL LYMPH 2 % (0-5); LYMPHOCYTES 2 % (16-44); MONOCYTES 2 % (0-5); NEUTROPHILS 78 % (28-66)
[2023-12-09 07:44] LABS: ANISOCYTOSIS 3+; PLATELET ESTIMATE NORMAL (NORMAL); POIKILOCYTOSIS 1+
[2023-12-09 07:46] LABS: PLATELET CLUMPS SMALL AMT; SCHISTOCYTES 2+
[2023-12-09 07:47] LABS: POLYCHROMASIA 1+
[2023-12-09 14:12] VITALS: BP 122/50; TEMP 98.6; O2SAT 93
[2023-12-09] MEDS: VANCOMYCIN 500MG/10ML VIAL PR SCH (14:59)
[2023-12-09 18:00] VITALS: BP 124/56; TEMP 98.2; O2SAT 92
[2023-12-09] MEDS: VANCOMYCIN 125MG CAPSULE PO SCH (21:00)
[2023-12-09 22:00] VITALS: BP 101/49; TEMP 97.8; O2SAT 95
[2023-12-10 02:00] VITALS: BP 115/56; TEMP 98; O2SAT 92
[2023-12-10 06:00] VITALS: BP 119/58; TEMP 99.8; O2SAT 90
[2023-12-10 06:27] LABS: BASO # 0.2 10^3/uL (0.0-0.2); BASO % 0.6 % (0.0-1.0); EOS # 0.4 10^3/uL (0.0-0.5); EOS % 1.4 % (0.0-3.0); HEMATOCRIT 25.4 % (36.0-47.0); HEMOGLOBIN 8.1 g/dl (12.0-15.5); LYMPH % 3.9 % (24.0-44.0); MEAN CORPUSCULAR HEMOGLOBIN 28.5 pg (27.0-33.0); MEAN CORPUSCULAR HGB CONC 31.9 g/dl (32.0-36.5); MEAN CORPUSCULAR VOLUME 89.4 fl (80.0-96.0); MONO # 1.8 10^3/uL (0.0-0.8); MONO % 6.7 % (2.0-8.0); NEUTROPHILS # 22.2 10^3/uL (1.5-8.5); NEUTROPHILS % 82.9 % (36.0-66.0); PLATELET COUNT, AUTOMATED 249 10^3/uL (150-450); RED BLOOD COUNT 2.84 10^6/uL (4.00-5.40); WHITE BLOOD COUNT 26.7 10^3/uL (4.0-10.0)
[2023-12-10 06:49] LABS: CALCIUM LEVEL 7.6 MG/DL (8.3-10.6); CREATININE FOR GFR 2.78 MG/DL (0.55-1.30); GLOMERULAR FILTRATION RATE 17.8 (>39); MAGNESIUM LEVEL 1.8 MG/DL (1.8-2.4); POTASSIUM SERUM 4.5 MMOL/L (3.5-5.1)
[2023-12-10 08:00] VITALS: BP 130/59; TEMP 99.6; O2SAT 92
[2023-12-10] MEDS ORDERED: LORazepam 2 MG/ML 1ML VIAL IV STA (09:21)
[2023-12-10 13:56] VITALS: BP 133/54; TEMP 98.8; O2SAT 97
[2023-12-10 18:13] VITALS: BP 121/53; TEMP 100.9; O2SAT 94
[2023-12-10] MEDS: MOM 30ML SUSPENSION UDC PO ONE (18:25)
[2023-12-10] MEDS: MIRALAX *UNIT DOSE* 17GM PACKET PO SCH (18:26)
[2023-12-10] MEDS: FIDAXOMICIN 200 MG TAB (DIFICID) PO SCH (20:26)
[2023-12-10 22:00] VITALS: BP 120/54; TEMP 99.5; O2SAT 95
[2023-12-11] VITALS (13 sets, daily range): BP systolic 72–108; BP diastolic 38–79; TEMP 93.3–100.8; O2SAT 94–97
[2023-12-11 06:49] LABS: BASO # 0.2 10^3/uL (0.0-0.2); BASO % 0.6 % (0.0-1.0); EOS # 0.3 10^3/uL (0.0-0.5); EOS % 1.1 % (0.0-3.0); HEMATOCRIT 24.2 % (36.0-47.0); HEMOGLOBIN 7.4 g/dl (12.0-15.5); LYMPH # 1.8 10^3/uL (1.5-5.0); LYMPH % 6.6 % (24.0-44.0); MEAN CORPUSCULAR HEMOGLOBIN 27.6 pg (27.0-33.0); MEAN CORPUSCULAR HGB CONC 30.6 g/dl (32.0-36.5); MEAN CORPUSCULAR VOLUME 90.3 fl (80.0-96.0); MONO # 1.7 10^3/uL (0.0-0.8); MONO % 6.6 % (2.0-8.0); NEUTROPHILS % 79.7 % (36.0-66.0); PLATELET COUNT, AUTOMATED 229 10^3/uL (150-450); RED BLOOD COUNT 2.68 10^6/uL (4.00-5.40); WHITE BLOOD COUNT 26.3 10^3/uL (4.0-10.0)
[2023-12-11 07:25] LABS: CALCIUM LEVEL 7.1 MG/DL (8.3-10.6); CREATININE FOR GFR 3.85 MG/DL (0.55-1.30); GLOMERULAR FILTRATION RATE 12.2 (>39); POTASSIUM SERUM 4.4 MMOL/L (3.5-5.1)
[2023-12-11] MEDS: GEMTESA 75 MG PO SCH (09:00)
[2023-12-11] MEDS: MOM 30ML SUSPENSION UDC PO SCH (09:00)
[2023-12-11] MEDS: LACTULOSE 20GM/30ML SYRUP UDC PO STA (10:00)
[2023-12-11] MEDS: D5W/0.45% SODIUM CHLORIDE 1,000 ML IV SCH (10:16)
[2023-12-11] MEDS: FECAL MICROBIOTA TRANSPLANT PREPARATION 35ML BAG XX SCH (14:00)
[2023-12-11] MEDS ORDERED: propofoL 200 MG/20 ML VIAL As Ordered ONE (14:12)
[2023-12-11] MEDS ORDERED: LIDOCAINE 2% 100MG/5ML SDV (FOR ANES.) As Ordered ONE (14:12)
[2023-12-11] MEDS: NS 1,000 ML IV ONE ×2 (17:37→19:36)
[2023-12-11] MEDS: MIDODRINE 5 MG TAB PO ONE ×2 (17:40→19:37)
[2023-12-12] VITALS (17 sets, daily range): BP systolic 60–164; BP diastolic 38–89; TEMP 96–98.7; O2SAT 90–98
[2023-12-12] MEDS: NS 500 ML IV ONE (03:00)
[2023-12-12] MEDS: PERCOCET 5MG/325MG TAB PO PRN (03:07)
[2023-12-12] MEDS: NS 250 ML IV ONE ×2 (06:38)
[2023-12-12] MEDS: MIDODRINE 5 MG TAB PO SCH (06:45)
[2023-12-12 06:51] LABS: BASO # 0.1 10^3/uL (0.0-0.2); BASO % 0.6 % (0.0-1.0); EOS # 0.4 10^3/uL (0.0-0.5); EOS % 1.7 % (0.0-3.0); HEMOGLOBIN 7.7 g/dl (12.0-15.5); LYMPH # 1.8 10^3/uL (1.5-5.0); LYMPH % 7.9 % (24.0-44.0); MEAN CORPUSCULAR HEMOGLOBIN 28.5 pg (27.0-33.0); MEAN CORPUSCULAR HGB CONC 30.8 g/dl (32.0-36.5); MEAN CORPUSCULAR VOLUME 92.6 fl (80.0-96.0); MONO # 1.7 10^3/uL (0.0-0.8); MONO % 7.7 % (2.0-8.0); NEUTROPHILS # 17.2 10^3/uL (1.5-8.5); NEUTROPHILS % 76.4 % (36.0-66.0); PLATELET COUNT, AUTOMATED 217 10^3/uL (150-450); WHITE BLOOD COUNT 22.5 10^3/uL (4.0-10.0)
[2023-12-12 07:14] LABS: CALCIUM LEVEL 7.5 MG/DL (8.3-10.6); CREATININE FOR GFR 4.28 MG/DL (0.55-1.30); GLOMERULAR FILTRATION RATE 10.8 (>39); MAGNESIUM LEVEL 2.2 MG/DL (1.8-2.4); POTASSIUM SERUM 4.3 MMOL/L (3.5-5.1)
[2023-12-12] MEDS ORDERED: HEPARIN 1,000UNITS/ML 10ML VIAL (FOR RADIOLOGY & DIALYSIS ONLY) XX SCH (07:20)
[2023-12-12] MEDS ORDERED: SODIUM CHLORIDE 0.9% 1000ML IV PRN (07:20)
[2023-12-12] MEDS ORDERED: HEPARIN 1,000UNITS/ML 10ML VIAL (FOR RADIOLOGY & DIALYSIS ONLY) IV PRN (07:20)
[2023-12-12] MEDS: DARBEPOETIN 100MCG/0.5ML *DIALYSIS* SYRINGE IV SCH (08:40)
[2023-12-12] MEDS: ALBUTEROL SULFATE 2.5MG/0.5ML INH NEB SOLN NEB PRN (20:13)
[2023-12-12] MEDS: INSULIN LISPRO (NovoLOG) PER UNIT SC SCH (21:00)
[2023-12-12] MEDS ORDERED: HumuLIN R (REGULAR) INSULIN (NovoLIN R) **100U/ML** PER UNIT SC SCH (21:00)
[2023-12-13 02:00] VITALS: BP 118/59; TEMP 98.6; O2SAT 96
[2023-12-13 04:51] VITALS: BP 120/59; TEMP 98.8; O2SAT 96
[2023-12-13 06:42] LABS: BASO # 0.2 10^3/uL (0.0-0.2); BASO % 0.8 % (0.0-1.0); EOS # 0.4 10^3/uL (0.0-0.5); EOS % 2.2 % (0.0-3.0); HEMATOCRIT 27.7 % (36.0-47.0); HEMOGLOBIN 8.8 g/dl (12.0-15.5); LYMPH # 1.1 10^3/uL (1.5-5.0); MEAN CORPUSCULAR HEMOGLOBIN 28.8 pg (27.0-33.0); MEAN CORPUSCULAR HGB CONC 31.8 g/dl (32.0-36.5); MEAN CORPUSCULAR VOLUME 90.5 fl (80.0-96.0); MONO # 1.3 10^3/uL (0.0-0.8); MONO % 6.8 % (2.0-8.0); NEUTROPHILS # 15.2 10^3/uL (1.5-8.5); NEUTROPHILS % 80.7 % (36.0-66.0); PLATELET COUNT, AUTOMATED 230 10^3/uL (150-450); RED BLOOD COUNT 3.06 10^6/uL (4.00-5.40); WHITE BLOOD COUNT 18.9 10^3/uL (4.0-10.0)
[2023-12-13 07:09] LABS: ALBUMIN 1.3 G/DL (3.2-5.2); BILIRUBIN,TOTAL 0.2 MG/DL (0.3-1.2); CALCIUM LEVEL 7.9 MG/DL (8.3-10.6); CREATININE FOR GFR 2.82 MG/DL (0.55-1.30); GLOMERULAR FILTRATION RATE 17.5 (>39); PHOSPHORUS LEVEL 1.5 MG/DL (2.4-5.1); POTASSIUM SERUM 4.1 MMOL/L (3.5-5.1); TOTAL PROTEIN 4.6 G/DL (5.7-8.2)
[2023-12-13] MEDS: INSULIN LISPRO (NovoLOG) PER UNIT SC SCH (07:30)
[2023-12-13] MEDS ORDERED: HumuLIN R (REGULAR) INSULIN (NovoLIN R) **100U/ML** PER UNIT SC SCH (07:30)
[2023-12-13 10:00] VITALS: BP 100/70; TEMP 98.8; O2SAT 90
[2023-12-13] MEDS: SODIUM PHOSPHATE INJ 30 MMOL in D5W 500 ML IV ONE (12:00)
[2023-12-13 14:00] VITALS: BP 98/52; TEMP 97.7; O2SAT 90
[2023-12-13] MEDS ORDERED: ALBUTEROL SULFATE 2.5MG/0.5ML INH NEB SOLN NEB PRN (15:10)
[2023-12-13 15:48] LABS: BASO # 0.2 10^3/uL (0.0-0.2); BASO % 1.1 % (0.0-1.0); EOS # 0.4 10^3/uL (0.0-0.5); EOS % 2.2 % (0.0-3.0); HEMATOCRIT 28.3 % (36.0-47.0); HEMOGLOBIN 8.8 g/dl (12.0-15.5); LYMPH # 1.1 10^3/uL (1.5-5.0); LYMPH % 6.4 % (24.0-44.0); MEAN CORPUSCULAR HEMOGLOBIN 28.6 pg (27.0-33.0); MEAN CORPUSCULAR HGB CONC 31.1 g/dl (32.0-36.5); MEAN CORPUSCULAR VOLUME 91.9 fl (80.0-96.0); MONO # 0.9 10^3/uL (0.0-0.8); MONO % 5.3 % (2.0-8.0); NEUTROPHILS # 13.7 10^3/uL (1.5-8.5); NEUTROPHILS % 82.3 % (36.0-66.0); PLATELET COUNT, AUTOMATED 234 10^3/uL (150-450); RED BLOOD COUNT 3.08 10^6/uL (4.00-5.40); WHITE BLOOD COUNT 16.6 10^3/uL (4.0-10.0)
[2023-12-13 16:17] LABS: CALCIUM LEVEL 7.7 MG/DL (8.3-10.6); CREATININE FOR GFR 3.23 MG/DL (0.55-1.30); POTASSIUM SERUM 4.1 MMOL/L (3.5-5.1)
[2023-12-13 17:56] VITALS: BP 108/66; TEMP 98.6; O2SAT 90
[2023-12-13] MEDS: BUDESONIDE 0.5 MG/2 ML INHALATION SUSPENSION NEB SCH (19:19)
[2023-12-13] MEDS: IPRATROPIUM 0.5MG/ALBUTEROL 2.5MG INH SOL UD 3ML (DUONEB) NEB PRN (19:19)
[2023-12-13 21:00] VITALS: BP 110/65; TEMP 97.7; O2SAT 97
[2023-12-14] VITALS (8 sets, daily range): BP systolic 90–152; BP diastolic 44–59; TEMP 98.1–100; O2SAT 91–96
[2023-12-14] MEDS ORDERED: HEPARIN 1,000UNITS/ML 10ML VIAL (FOR RADIOLOGY & DIALYSIS ONLY) XX SCH (05:15)
[2023-12-14] MEDS ORDERED: HEPARIN 1,000UNITS/ML 10ML VIAL (FOR RADIOLOGY & DIALYSIS ONLY) IV PRN (05:15)
[2023-12-14] MEDS ORDERED: SODIUM CHLORIDE 0.9% 1000ML IV PRN (05:15)
[2023-12-14] MEDS: MIRALAX *UNIT DOSE* 17GM PACKET PO PRN (05:58)
[2023-12-14] MEDS: ASPIRIN 81MG CHEW TABLET PO PRN (05:59)
[2023-12-14 06:45] LABS: C REACTIVE PROTEIN QUANTITATIV 9.9 MG/DL (<1.0)
[2023-12-14 06:46] LABS: MAGNESIUM LEVEL 1.9 MG/DL (1.8-2.4)
[2023-12-14 08:59] LABS: CALCIUM LEVEL 7.3 MG/DL (8.3-10.6); CREATININE FOR GFR 3.68 MG/DL (0.55-1.30); GLOMERULAR FILTRATION RATE 12.9 (>39); PHOSPHORUS LEVEL 2.7 MG/DL (2.4-5.1)
[2023-12-15 02:00] VITALS: BP 145/59; TEMP 97.7; O2SAT 94
[2023-12-15 06:00] VITALS: BP 120/78; TEMP 100.1; O2SAT 93
[2023-12-15 06:07] LABS: BASO # 0.1 10^3/uL (0.0-0.2); EOS # 0.3 10^3/uL (0.0-0.5); HEMATOCRIT 25.9 % (36.0-47.0); HEMOGLOBIN 8.3 g/dl (12.0-15.5); LYMPH # 0.9 10^3/uL (1.5-5.0); LYMPH % 6.9 % (24.0-44.0); MEAN CORPUSCULAR HEMOGLOBIN 28.3 pg (27.0-33.0); MEAN CORPUSCULAR VOLUME 88.4 fl (80.0-96.0); MONO % 7.1 % (2.0-8.0); NEUTROPHILS # 11.1 10^3/uL (1.5-8.5); PLATELET COUNT, AUTOMATED 245 10^3/uL (150-450); RED BLOOD COUNT 2.93 10^6/uL (4.00-5.40); WHITE BLOOD COUNT 13.7 10^3/uL (4.0-10.0)
[2023-12-15 06:31] LABS: CALCIUM LEVEL 7.6 MG/DL (8.3-10.6); CREATININE FOR GFR 2.6 MG/DL (0.55-1.30); GLOMERULAR FILTRATION RATE 19.3 (>39); MAGNESIUM LEVEL 1.9 MG/DL (1.8-2.4); PHOSPHORUS LEVEL 1.9 MG/DL (2.4-5.1); POTASSIUM SERUM 4.2 MMOL/L (3.5-5.1)
[2023-12-15 10:00] VITALS: BP 120/60; TEMP 97.7; O2SAT 91
[2023-12-15 14:00] VITALS: BP 122/58; TEMP 98.4; O2SAT 97
[2023-12-15] MEDS: SODIUM PHOSPHATE INJ 30 MMOL in D5W 500 ML IV ONE (17:00)
[2023-12-15 20:29] VITALS: BP 158/70; TEMP 98.6; O2SAT 96
[2023-12-16] MEDS ORDERED: HEPARIN 1,000UNITS/ML 10ML VIAL (FOR RADIOLOGY & DIALYSIS ONLY) IV PRN (05:55)
[2023-12-16] MEDS ORDERED: HEPARIN 1,000UNITS/ML 10ML VIAL (FOR RADIOLOGY & DIALYSIS ONLY) XX SCH (05:55)
[2023-12-16] MEDS ORDERED: SODIUM CHLORIDE 0.9% 1000ML IV PRN (05:55)
[2023-12-16 06:34] VITALS: BP 122/60; TEMP 98.2; O2SAT 97
[2023-12-16 06:47] LABS: BASO # 0.1 10^3/uL (0.0-0.2); BASO % 1.3 % (0.0-1.0); EOS # 0.3 10^3/uL (0.0-0.5); EOS % 2.8 % (0.0-3.0); HEMATOCRIT 25.6 % (36.0-47.0); HEMOGLOBIN 8.1 g/dl (12.0-15.5); LYMPH % 8.8 % (24.0-44.0); MEAN CORPUSCULAR HEMOGLOBIN 28.2 pg (27.0-33.0); MEAN CORPUSCULAR HGB CONC 31.6 g/dl (32.0-36.5); MEAN CORPUSCULAR VOLUME 89.2 fl (80.0-96.0); MONO # 0.8 10^3/uL (0.0-0.8); MONO % 7.2 % (2.0-8.0); NEUTROPHILS # 8.5 10^3/uL (1.5-8.5); NEUTROPHILS % 78.2 % (36.0-66.0); PLATELET COUNT, AUTOMATED 256 10^3/uL (150-450); RED BLOOD COUNT 2.87 10^6/uL (4.00-5.40); WHITE BLOOD COUNT 10.9 10^3/uL (4.0-10.0)
[2023-12-16 07:14] LABS: C REACTIVE PROTEIN QUANTITATIV 5.2 MG/DL (<1.0)
[2023-12-16 07:21] LABS: ALBUMIN 1.2 G/DL (3.2-5.2); BILIRUBIN,TOTAL 0.2 MG/DL (0.3-1.2); CALCIUM LEVEL 7.4 MG/DL (8.3-10.6); CREATININE FOR GFR 3.35 MG/DL (0.55-1.30); GLOMERULAR FILTRATION RATE 14.4 (>39); MAGNESIUM LEVEL 1.9 MG/DL (1.8-2.4); PHOSPHORUS LEVEL 2.3 MG/DL (2.4-5.1); TOTAL PROTEIN 4.5 G/DL (5.7-8.2)
[2023-12-16 14:00] VITALS: BP 118/52; TEMP 98.6; O2SAT 95
[2023-12-16 19:51] VITALS: BP 154/58; TEMP 98.6; O2SAT 94
[2023-12-17 04:44] VITALS: BP 118/54; TEMP 98.1; O2SAT 97
[2023-12-17 14:00] VITALS: BP 108/64; TEMP 97.9; O2SAT 98
[2023-12-17 20:40] VITALS: BP 112/58; TEMP 98.1; O2SAT 97
[2023-12-18 04:14] VITALS: BP 118/58; TEMP 98.1; O2SAT 96
[2023-12-18 07:14] LABS: BASO # 0.1 10^3/uL (0.0-0.2); BASO % 1.5 % (0.0-1.0); EOS # 0.4 10^3/uL (0.0-0.5); EOS % 5.1 % (0.0-3.0); HEMATOCRIT 28.1 % (36.0-47.0); LYMPH # 1.2 10^3/uL (1.5-5.0); LYMPH % 14.4 % (24.0-44.0); MEAN CORPUSCULAR HEMOGLOBIN 29.5 pg (27.0-33.0); MEAN CORPUSCULAR VOLUME 92.1 fl (80.0-96.0); MONO # 0.6 10^3/uL (0.0-0.8); MONO % 6.5 % (2.0-8.0); NEUTROPHILS # 6.1 10^3/uL (1.5-8.5); NEUTROPHILS % 71.1 % (36.0-66.0); PLATELET COUNT, AUTOMATED 304 10^3/uL (150-450); RED BLOOD COUNT 3.05 10^6/uL (4.00-5.40); WHITE BLOOD COUNT 8.6 10^3/uL (4.0-10.0)
[2023-12-18 07:40] LABS: ALBUMIN 1.5 G/DL (3.2-5.2); BILIRUBIN,TOTAL 0.2 MG/DL (0.3-1.2); CALCIUM LEVEL 7.1 MG/DL (8.3-10.6); CREATININE FOR GFR 3.11 MG/DL (0.55-1.30); GLOMERULAR FILTRATION RATE 15.7 (>39); MAGNESIUM LEVEL 1.9 MG/DL (1.8-2.4); PHOSPHORUS LEVEL 2.2 MG/DL (2.4-5.1)
[2023-12-18 10:15] VITALS: BP 138/80; TEMP 98.1; O2SAT 98
[2023-12-18 13:50] VITALS: BP 118/70; TEMP 98.1; O2SAT 92
[2023-12-18 16:45] VITALS: BP 110/55
[2023-12-18 18:00] VITALS: BP 118/58; TEMP 97.2; O2SAT 98
[2023-12-18 21:05] VITALS: BP 148/58; TEMP 97.9; O2SAT 96
[2023-12-19] VITALS (8 sets, daily range): BP systolic 130–157; BP diastolic 61–70; TEMP 97.9–98.4; O2SAT 92–98
[2023-12-19] MEDS ORDERED: HEPARIN 1,000UNITS/ML 10ML VIAL (FOR RADIOLOGY & DIALYSIS ONLY) IV PRN (06:00)
[2023-12-19] MEDS ORDERED: SODIUM CHLORIDE 0.9% 1000ML IV PRN (06:00)
[2023-12-19 07:20] LABS: ALBUMIN 1.3 G/DL (3.2-5.2); ALKALINE PHOSPHATASE 358 U/L (46-116); ALT/SGPT 23 U/L (7.0-40); AST/SGOT 23 U/L (<34); BILIRUBIN,TOTAL < 0.2 MG/DL (0.3-1.2); BLOOD UREA NITROGEN 42 MG/DL (9-23); CALCIUM LEVEL 7.1 MG/DL (8.3-10.6); CARBON DIOXIDE LEVEL 23 MMOL/L (20-31); CHLORIDE LEVEL 108 MMOL/L (98-107); GLOMERULAR FILTRATION RATE 14.6 (>39); GLUCOSE, FASTING 73 MG/DL (74-106); MAGNESIUM LEVEL 1.8 MG/DL (1.8-2.4); PHOSPHORUS LEVEL 2.6 MG/DL (2.4-5.1); POTASSIUM SERUM 4.9 MMOL/L (3.5-5.1); SODIUM LEVEL 139 MMOL/L (136-145); TOTAL PROTEIN 5.1 G/DL (5.7-8.2)
[2023-12-19] MEDS: DARBEPOETIN 200MCG/0.4ML *DIALYSIS* SYRINGE IV SCH (08:28)
[2023-12-19] MEDS: MAGNESIUM CITRATE 300ML BTL PO ONE (17:06)
[2023-12-19] MEDS: ONDANSETRON 4MG 2ML VIAL IV PRN (18:33)
[2023-12-20] VITALS (11 sets, daily range): BP systolic 130–165; BP diastolic 61–72; TEMP 97.7–98.4; O2SAT 65–97
[2023-12-20] MEDS: MAGNESIUM CITRATE 300ML BTL PO ONE (05:48)
[2023-12-20 07:51] LABS: HEMATOCRIT 27.2 % (36.0-47.0); HEMOGLOBIN 8.7 g/dl (12.0-15.5); MEAN CORPUSCULAR VOLUME 90.7 fl (80.0-96.0); PLATELET COUNT, AUTOMATED 299 10^3/uL (150-450); WHITE BLOOD COUNT 6.4 10^3/uL (4.0-10.0)
[2023-12-20 08:22] LABS: ALBUMIN 1.5 G/DL (3.2-5.2); BILIRUBIN,TOTAL 0.2 MG/DL (0.3-1.2); CALCIUM LEVEL 7.4 MG/DL (8.3-10.6); CREATININE FOR GFR 2.25 MG/DL (0.55-1.30); GLOMERULAR FILTRATION RATE 22.8 (>39); POTASSIUM SERUM 3.9 MMOL/L (3.5-5.1); TOTAL PROTEIN 5.2 G/DL (5.7-8.2)
[2023-12-20] MEDS: DIAPER RELIEF PASTE (DESITIN) 60GM TOP PRN (08:22)
[2023-12-20] MEDS: FECAL MICROBIOTA TRANSPLANT PREPARATION 35ML BAG XX ONE (13:00)
[2023-12-21] VITALS (7 sets, daily range): BP systolic 123–155; BP diastolic 60–69; TEMP 98.1–98.9; O2SAT 91–96
[2023-12-21] MEDS ORDERED: LIDOCAINE 1% SDV 5ML VIAL SC PRN (06:00)
[2023-12-21] MEDS ORDERED: SODIUM CHLORIDE 0.9% 1000ML IV PRN (06:00)
[2023-12-21] MEDS ORDERED: HEPARIN 1,000UNITS/ML 10ML VIAL (FOR RADIOLOGY & DIALYSIS ONLY) XX SCH (06:00)
[2023-12-21] MEDS ORDERED: HEPARIN 1,000UNITS/ML 10ML VIAL (FOR RADIOLOGY & DIALYSIS ONLY) IV PRN (06:00)
[2023-12-21 07:36] LABS: MEAN CORPUSCULAR HEMOGLOBIN 29.1 pg (27.0-33.0); MEAN CORPUSCULAR HGB CONC 32.1 g/dl (32.0-36.5); MEAN CORPUSCULAR VOLUME 90.6 fl (80.0-96.0); PLATELET COUNT, AUTOMATED 301 10^3/uL (150-450); RED BLOOD COUNT 3.09 10^6/uL (4.00-5.40); WHITE BLOOD COUNT 7.9 10^3/uL (4.0-10.0)
[2023-12-21 08:02] LABS: ALBUMIN 1.6 G/DL (3.2-5.2); BILIRUBIN,TOTAL 0.2 MG/DL (0.3-1.2); CALCIUM LEVEL 7.5 MG/DL (8.3-10.6); CREATININE FOR GFR 2.68 MG/DL (0.55-1.30); GLOMERULAR FILTRATION RATE 18.6 (>39); POTASSIUM SERUM 4.1 MMOL/L (3.5-5.1); TOTAL PROTEIN 5.3 G/DL (5.7-8.2)
[2023-12-22 06:00] VITALS: BP 134/68; TEMP 98.2; O2SAT 93
[2023-12-22 07:03] LABS: HEMATOCRIT 25.2 % (36.0-47.0); MEAN CORPUSCULAR HEMOGLOBIN 28.6 pg (27.0-33.0); MEAN CORPUSCULAR HGB CONC 31.7 g/dl (32.0-36.5); PLATELET COUNT, AUTOMATED 280 10^3/uL (150-450); WHITE BLOOD COUNT 5.4 10^3/uL (4.0-10.0)
[2023-12-22 07:31] LABS: ALBUMIN 1.5 G/DL (3.2-5.2); BILIRUBIN,TOTAL 0.2 MG/DL (0.3-1.2); CALCIUM LEVEL 7.3 MG/DL (8.3-10.6); CREATININE FOR GFR 2.09 MG/DL (0.55-1.30); GLOMERULAR FILTRATION RATE 24.8 (>39); POTASSIUM SERUM 3.4 MMOL/L (3.5-5.1); TOTAL PROTEIN 4.9 G/DL (5.7-8.2)
[2023-12-22 08:58] LABS: C REACTIVE PROTEIN QUANTITATIV 3.2 MG/DL (<1.0)
[2023-12-22 10:29] LABS: PROCALCITONIN 0.28 ng/ml
[2023-12-22] MEDS ORDERED: POTASSIUM CHLORIDE 10MEQ SR TABLET PO ONE (11:00)
[2023-12-22 12:12] VITALS: BP 112/54
[2023-12-22 15:17] VITALS: TEMP 98.8; O2SAT 95
[2023-12-22 15:24] VITALS: BP 180/66
[2023-12-22] MEDS: REMDESIVIR 200 MG in NS 250 ML IV ONE (20:20)
[2023-12-22 20:47] VITALS: BP 108/52; TEMP 97.9; O2SAT 94
[2023-12-23 02:09] VITALS: O2SAT 95
[2023-12-23 06:05] LABS: HEMATOCRIT 26.4 % (36.0-47.0); HEMOGLOBIN 8.5 g/dl (12.0-15.5); MEAN CORPUSCULAR HGB CONC 32.2 g/dl (32.0-36.5); MEAN CORPUSCULAR VOLUME 90.1 fl (80.0-96.0); PLATELET COUNT, AUTOMATED 308 10^3/uL (150-450); RED BLOOD COUNT 2.93 10^6/uL (4.00-5.40); WHITE BLOOD COUNT 5.9 10^3/uL (4.0-10.0)
[2023-12-23 06:10] VITALS: BP 160/78; TEMP 98.6; O2SAT 96
[2023-12-23 06:19] VITALS: BP 100/52; TEMP 98.6; O2SAT 92
[2023-12-23 06:39] LABS: ALBUMIN 1.6 G/DL (3.2-5.2); ALKALINE PHOSPHATASE 269 U/L (46-116); ALT/SGPT 14 U/L (7.0-40); AST/SGOT 17 U/L (<34); BILIRUBIN,TOTAL < 0.2 MG/DL (0.3-1.2); BLOOD UREA NITROGEN 22 MG/DL (9-23); CALCIUM LEVEL 7.3 MG/DL (8.3-10.6); CARBON DIOXIDE LEVEL 29 MMOL/L (20-31); CHLORIDE LEVEL 102 MMOL/L (98-107); CREATININE FOR GFR 2.34 MG/DL (0.55-1.30); GLOMERULAR FILTRATION RATE 21.8 (>39); GLUCOSE, FASTING 87 MG/DL (74-106); POTASSIUM SERUM 3.5 MMOL/L (3.5-5.1); SODIUM LEVEL 136 MMOL/L (136-145); TOTAL PROTEIN 5.3 G/DL (5.7-8.2)
[2023-12-23] MEDS ORDERED: HEPARIN 1,000UNITS/ML 10ML VIAL (FOR RADIOLOGY & DIALYSIS ONLY) IV PRN (07:25)
[2023-12-23] MEDS ORDERED: HEPARIN 1,000UNITS/ML 10ML VIAL (FOR RADIOLOGY & DIALYSIS ONLY) XX SCH (07:25)
[2023-12-23] MEDS ORDERED: SODIUM CHLORIDE 0.9% 1000ML IV PRN (07:25)
[2023-12-23 14:00] VITALS: BP 176/74; TEMP 98.6; O2SAT 95
[2023-12-23] MEDS: REMDESIVIR 100 MG in NS 250 ML IV SCH (20:37)
[2023-12-23 21:17] VITALS: BP 162/67; TEMP 97.9; O2SAT 96
[2023-12-24 05:31] VITALS: BP 160/63; TEMP 98.4; O2SAT 97
[2023-12-24 06:40] LABS: HEMATOCRIT 24.1 % (36.0-47.0); HEMOGLOBIN 7.6 g/dl (12.0-15.5); MEAN CORPUSCULAR HGB CONC 31.5 g/dl (32.0-36.5); PLATELET COUNT, AUTOMATED 272 10^3/uL (150-450); RED BLOOD COUNT 2.62 10^6/uL (4.00-5.40)
[2023-12-24 07:06] LABS: ALBUMIN 1.3 G/DL (3.2-5.2); BILIRUBIN,TOTAL 0.2 MG/DL (0.3-1.2); CALCIUM LEVEL 7.2 MG/DL (8.3-10.6); CREATININE FOR GFR 2.02 MG/DL (0.55-1.30); GLOMERULAR FILTRATION RATE 25.8 (>39); TOTAL PROTEIN 4.8 G/DL (5.7-8.2)
[2023-12-24 11:34] VITALS: O2SAT 98
[2023-12-24 14:00] VITALS: BP 162/63; TEMP 98.1; O2SAT 95
[2023-12-24 20:36] VITALS: BP 140/72; TEMP 98.8; O2SAT 96
[2023-12-25] VITALS (9 sets, daily range): BP systolic 142–168; BP diastolic 72–82; TEMP 98.1–99.1; O2SAT 95–99
[2023-12-25 07:33] LABS: HEMATOCRIT 26.8 % (36.0-47.0); HEMOGLOBIN 8.4 g/dl (12.0-15.5); MEAN CORPUSCULAR HEMOGLOBIN 28.5 pg (27.0-33.0); MEAN CORPUSCULAR HGB CONC 31.3 g/dl (32.0-36.5); MEAN CORPUSCULAR VOLUME 90.8 fl (80.0-96.0); PLATELET COUNT, AUTOMATED 295 10^3/uL (150-450); RED BLOOD COUNT 2.95 10^6/uL (4.00-5.40); WHITE BLOOD COUNT 5.7 10^3/uL (4.0-10.0)
[2023-12-25 07:56] LABS: ALBUMIN 1.4 G/DL (3.2-5.2); ALKALINE PHOSPHATASE 205 U/L (46-116); ALT/SGPT 13 U/L (7.0-40); AST/SGOT 12 U/L (<34); BILIRUBIN,TOTAL 0.2 MG/DL (0.3-1.2); BLOOD UREA NITROGEN 25 MG/DL (9-23); CALCIUM LEVEL 7.6 MG/DL (8.3-10.6); CARBON DIOXIDE LEVEL 26 MMOL/L (20-31); CHLORIDE LEVEL 108 MMOL/L (98-107); CREATININE FOR GFR 2.52 MG/DL (0.55-1.30); GLUCOSE, FASTING 79 MG/DL (74-106); POTASSIUM SERUM 3.9 MMOL/L (3.5-5.1); SODIUM LEVEL 139 MMOL/L (136-145); TOTAL PROTEIN 4.9 G/DL (5.7-8.2)
[2023-12-25 13:33] LABS: CLOSTRIDIUM DIFFICILE PCR POSITIVE (NEGATIVE)
[2023-12-25] MEDS: GASTROGRAFIN SOLUTION 30ML PO SCH (15:16)
[2023-12-25 15:44] LABS: IMMUNOGLOBULIN A 525.1 MG/DL (40-350); IMMUNOGLOBULIN G 1280 MG/DL (650-1600)
[2023-12-25] MEDS: FIDAXOMICIN 200 MG TAB (DIFICID) PO SCH (21:11)
[2023-12-26 06:51] VITALS: BP 142/60; TEMP 97.9; O2SAT 96
[2023-12-26] MEDS ORDERED: HEPARIN 1,000UNITS/ML 10ML VIAL (FOR RADIOLOGY & DIALYSIS ONLY) XX SCH (07:00)
[2023-12-26] MEDS ORDERED: HEPARIN 1,000UNITS/ML 10ML VIAL (FOR RADIOLOGY & DIALYSIS ONLY) IV PRN (07:00)
[2023-12-26] MEDS ORDERED: SODIUM CHLORIDE 0.9% 1000ML IV PRN (07:00)
[2023-12-26 09:00] VITALS: O2SAT 95
[2023-12-26 09:13] LABS: HEMATOCRIT 25.7 % (36.0-47.0); HEMOGLOBIN 8.2 g/dl (12.0-15.5); MEAN CORPUSCULAR HEMOGLOBIN 29.6 pg (27.0-33.0); MEAN CORPUSCULAR HGB CONC 31.9 g/dl (32.0-36.5); MEAN CORPUSCULAR VOLUME 92.8 fl (80.0-96.0); PLATELET COUNT, AUTOMATED 276 10^3/uL (150-450); RED BLOOD COUNT 2.77 10^6/uL (4.00-5.40); WHITE BLOOD COUNT 7.3 10^3/uL (4.0-10.0)
[2023-12-26 09:46] LABS: ALBUMIN 1.5 G/DL (3.2-5.2); BILIRUBIN,TOTAL 0.2 MG/DL (0.3-1.2); CALCIUM LEVEL 7.5 MG/DL (8.3-10.6); CREATININE FOR GFR 2.89 MG/DL (0.55-1.30); POTASSIUM SERUM 4.3 MMOL/L (3.5-5.1); TOTAL PROTEIN 5.3 G/DL (5.7-8.2)
[2023-12-26 11:22] VITALS: BP 180/74
[2023-12-26 16:30] VITALS: BP 152/80; TEMP 99; O2SAT 92
[2023-12-26 20:06] VITALS: BP 162/68; TEMP 98.1; O2SAT 96
[2023-12-27 06:04] VITALS: BP 148/60; TEMP 98.2; O2SAT 97
[2023-12-27 07:03] LABS: HEMATOCRIT 24.7 % (36.0-47.0); HEMOGLOBIN 7.8 g/dl (12.0-15.5); MEAN CORPUSCULAR HEMOGLOBIN 28.4 pg (27.0-33.0); MEAN CORPUSCULAR HGB CONC 31.6 g/dl (32.0-36.5); MEAN CORPUSCULAR VOLUME 89.8 fl (80.0-96.0); PLATELET COUNT, AUTOMATED 262 10^3/uL (150-450); RED BLOOD COUNT 2.75 10^6/uL (4.00-5.40); WHITE BLOOD COUNT 5.9 10^3/uL (4.0-10.0)
[2023-12-27 07:36] LABS: ALBUMIN 1.4 G/DL (3.2-5.2); BILIRUBIN,TOTAL 0.2 MG/DL (0.3-1.2); CALCIUM LEVEL 8.1 MG/DL (8.3-10.6); CREATININE FOR GFR 2.14 MG/DL (0.55-1.30); GLOMERULAR FILTRATION RATE 24.1 (>39); POTASSIUM SERUM 3.9 MMOL/L (3.5-5.1)
[2023-12-27 11:14] VITALS: O2SAT 96
[2023-12-27 13:34] LABS: HEMATOCRIT 23.5 % (36.0-47.0); HEMOGLOBIN 7.5 g/dl (12.0-15.5)
[2023-12-27 14:00] VITALS: BP 130/60; TEMP 98.1; O2SAT 95
[2023-12-27 20:22] VITALS: BP 142/76; TEMP 98.2; O2SAT 96
[2023-12-28 04:13] VITALS: O2SAT 91
[2023-12-28] MEDS ORDERED: SODIUM CHLORIDE 0.9% 1000ML IV PRN (05:15)
[2023-12-28] MEDS ORDERED: HEPARIN 1,000UNITS/ML 10ML VIAL (FOR RADIOLOGY & DIALYSIS ONLY) XX SCH (05:15)
[2023-12-28] MEDS ORDERED: HEPARIN 1,000UNITS/ML 10ML VIAL (FOR RADIOLOGY & DIALYSIS ONLY) IV PRN (05:15)
[2023-12-28 06:05] VITALS: BP 162/74; TEMP 98.2; O2SAT 96
[2023-12-28 07:00] LABS: BASO # 0.2 10^3/uL (0.0-0.2); BASO % 2.3 % (0.0-1.0); EOS # 0.7 10^3/uL (0.0-0.5); EOS % 10.8 % (0.0-3.0); HEMATOCRIT 25.7 % (36.0-47.0); LYMPH % 14.8 % (24.0-44.0); MEAN CORPUSCULAR HEMOGLOBIN 28.4 pg (27.0-33.0); MEAN CORPUSCULAR HGB CONC 31.1 g/dl (32.0-36.5); MEAN CORPUSCULAR VOLUME 91.1 fl (80.0-96.0); MONO # 0.6 10^3/uL (0.0-0.8); MONO % 8.7 % (2.0-8.0); NEUTROPHILS % 62.9 % (36.0-66.0); PLATELET COUNT, AUTOMATED 251 10^3/uL (150-450); RED BLOOD COUNT 2.82 10^6/uL (4.00-5.40); WHITE BLOOD COUNT 6.4 10^3/uL (4.0-10.0)
[2023-12-28 07:27] LABS: CALCIUM LEVEL 8.2 MG/DL (8.3-10.6); CREATININE FOR GFR 2.74 MG/DL (0.55-1.30); GLOMERULAR FILTRATION RATE 18.1 (>39); MAGNESIUM LEVEL 1.8 MG/DL (1.8-2.4); POTASSIUM SERUM 3.7 MMOL/L (3.5-5.1)
[2023-12-28] MEDS: **hydrALAZINE HCL** 25 MG TAB PO SCH (07:36)
[2023-12-28] MEDS ORDERED: DIFI200T PO ×2 (10:50)
[2023-12-28 14:00] VITALS: BP 130/66; TEMP 98.5; O2SAT 96
[2023-12-28 20:24] VITALS: BP 132/70; TEMP 98.5; O2SAT 96
[2023-12-29 05:53] VITALS: BP 158/72; TEMP 97.5; O2SAT 95
[2023-12-29 09:15] LABS: CALCIUM LEVEL 8.4 MG/DL (8.3-10.6); CREATININE FOR GFR 2.09 MG/DL (0.55-1.30); GLOMERULAR FILTRATION RATE 24.8 (>39); MAGNESIUM LEVEL 1.9 MG/DL (1.8-2.4); POTASSIUM SERUM 4.1 MMOL/L (3.5-5.1)
[2023-12-29 09:45] VITALS: O2SAT 85
[2023-12-29 09:50] VITALS: O2SAT 92
[2023-12-29] MEDS ORDERED: SODIUM CHLORIDE 0.9% 1000ML IV PRN (10:05)
[2023-12-29] MEDS ORDERED: HEPARIN 1,000UNITS/ML 10ML VIAL (FOR RADIOLOGY & DIALYSIS ONLY) IV PRN (10:05)
[2023-12-29] MEDS ORDERED: HEPARIN 1,000UNITS/ML 10ML VIAL (FOR RADIOLOGY & DIALYSIS ONLY) XX SCH (10:05)
[2023-12-29 11:57] VITALS: O2SAT 92
[2023-12-29 16:00] VITALS: O2SAT 97
[2023-12-29 20:49] VITALS: BP 147/79; TEMP 98.4; O2SAT 96
[2023-12-30] VITALS (15 sets, daily range): BP systolic 150–199; BP diastolic 64–86; TEMP 97.7–98.9; O2SAT 91–97
[2023-12-30] MEDS ORDERED: HEPARIN 1,000UNITS/ML 10ML VIAL (FOR RADIOLOGY & DIALYSIS ONLY) XX SCH (05:05)
[2023-12-30] MEDS ORDERED: HEPARIN 1,000UNITS/ML 10ML VIAL (FOR RADIOLOGY & DIALYSIS ONLY) IV PRN (05:05)
[2023-12-30] MEDS ORDERED: SODIUM CHLORIDE 0.9% 1000ML IV PRN (05:05)
[2023-12-30 06:52] LABS: BASO # 0.1 10^3/uL (0.0-0.2); BASO % 1.4 % (0.0-1.0); EOS # 0.7 10^3/uL (0.0-0.5); EOS % 8.2 % (0.0-3.0); HEMATOCRIT 22.6 % (36.0-47.0); HEMOGLOBIN 7.1 g/dl (12.0-15.5); LYMPH # 1.3 10^3/uL (1.5-5.0); LYMPH % 14.7 % (24.0-44.0); MEAN CORPUSCULAR HEMOGLOBIN 29.2 pg (27.0-33.0); MEAN CORPUSCULAR HGB CONC 31.4 g/dl (32.0-36.5); MONO # 0.8 10^3/uL (0.0-0.8); MONO % 9.2 % (2.0-8.0); NEUTROPHILS # 5.7 10^3/uL (1.5-8.5); PLATELET COUNT, AUTOMATED 243 10^3/uL (150-450); RED BLOOD COUNT 2.43 10^6/uL (4.00-5.40); WHITE BLOOD COUNT 8.7 10^3/uL (4.0-10.0)
[2023-12-30 07:24] LABS: CALCIUM LEVEL 8.2 MG/DL (8.3-10.6); CREATININE FOR GFR 2.59 MG/DL (0.55-1.30); GLOMERULAR FILTRATION RATE 19.3 (>39); MAGNESIUM LEVEL 1.7 MG/DL (1.8-2.4); POTASSIUM SERUM 4.3 MMOL/L (3.5-5.1)
[2023-12-30] MEDS: **hydrALAZINE** 10 MG TAB PO ONE (18:51)
[2023-12-30 19:28] LABS: HEMATOCRIT 34.1 % (36.0-47.0)
[2023-12-30 19:39] LABS: HEMOGLOBIN 10.9 g/dl (12.0-15.5)
[2023-12-31] VITALS (7 sets, daily range): BP systolic 160–179; BP diastolic 80–85; TEMP 98.1–98.6; O2SAT 92–98
[2023-12-31 06:48] LABS: BASO # 0.2 10^3/uL (0.0-0.2); BASO % 2.5 % (0.0-1.0); EOS # 0.8 10^3/uL (0.0-0.5); EOS % 12.3 % (0.0-3.0); HEMATOCRIT 30.7 % (36.0-47.0); HEMOGLOBIN 9.7 g/dl (12.0-15.5); LYMPH # 1.1 10^3/uL (1.5-5.0); LYMPH % 17.7 % (24.0-44.0); MEAN CORPUSCULAR HEMOGLOBIN 28.9 pg (27.0-33.0); MEAN CORPUSCULAR HGB CONC 31.6 g/dl (32.0-36.5); MEAN CORPUSCULAR VOLUME 91.4 fl (80.0-96.0); MONO # 0.7 10^3/uL (0.0-0.8); MONO % 11.5 % (2.0-8.0); NEUTROPHILS # 3.4 10^3/uL (1.5-8.5); NEUTROPHILS % 55.5 % (36.0-66.0); PLATELET COUNT, AUTOMATED 252 10^3/uL (150-450); RED BLOOD COUNT 3.36 10^6/uL (4.00-5.40); WHITE BLOOD COUNT 6.1 10^3/uL (4.0-10.0)
[2023-12-31 07:22] LABS: CALCIUM LEVEL 8.7 MG/DL (8.3-10.6); CREATININE FOR GFR 2.09 MG/DL (0.55-1.30); GLOMERULAR FILTRATION RATE 24.8 (>39); MAGNESIUM LEVEL 1.7 MG/DL (1.8-2.4); POTASSIUM SERUM 4.2 MMOL/L (3.5-5.1)
[2023-12-31] MEDS: guaiFENesin ER TABLET 600 MG TAB PO SCH (13:53)
[2023-12-31] MEDS: **hydrALAZINE** 10 MG TAB PO STA (15:24)
[2024-01-01 06:00] VITALS: BP 174/66; TEMP 98.2; O2SAT 93
[2024-01-01] MEDS ORDERED: SODIUM CHLORIDE 0.9% 1000ML IV PRN (06:00)
[2024-01-01] MEDS ORDERED: HEPARIN 1,000UNITS/ML 10ML VIAL (FOR RADIOLOGY & DIALYSIS ONLY) XX SCH (06:00)
[2024-01-01] MEDS ORDERED: HEPARIN 1,000UNITS/ML 10ML VIAL (FOR RADIOLOGY & DIALYSIS ONLY) IV PRN (06:00)
[2024-01-01 06:36] LABS: BASO # 0.2 10^3/uL (0.0-0.2); BASO % 2.6 % (0.0-1.0); EOS # 0.8 10^3/uL (0.0-0.5); EOS % 12.1 % (0.0-3.0); HEMATOCRIT 33.1 % (36.0-47.0); HEMOGLOBIN 10.3 g/dl (12.0-15.5); LYMPH # 1.6 10^3/uL (1.5-5.0); MEAN CORPUSCULAR HGB CONC 31.1 g/dl (32.0-36.5); MEAN CORPUSCULAR VOLUME 93.2 fl (80.0-96.0); MONO # 0.7 10^3/uL (0.0-0.8); MONO % 10.6 % (2.0-8.0); NEUTROPHILS # 3.2 10^3/uL (1.5-8.5); NEUTROPHILS % 49.2 % (36.0-66.0); PLATELET COUNT, AUTOMATED 241 10^3/uL (150-450); RED BLOOD COUNT 3.55 10^6/uL (4.00-5.40); WHITE BLOOD COUNT 6.5 10^3/uL (4.0-10.0)
[2024-01-01 07:08] LABS: BLOOD UREA NITROGEN 26 MG/DL (9-23); CALCIUM LEVEL 8.8 MG/DL (8.3-10.6); CARBON DIOXIDE LEVEL 24 MMOL/L (20-31); CHLORIDE LEVEL 106 MMOL/L (98-107); CREATININE FOR GFR 2.72 MG/DL (0.55-1.30); GLOMERULAR FILTRATION RATE 18.3 (>39); GLUCOSE, FASTING 85 MG/DL (74-106); MAGNESIUM LEVEL 1.8 MG/DL (1.8-2.4); POTASSIUM SERUM 3.9 MMOL/L (3.5-5.1); SODIUM LEVEL 136 MMOL/L (136-145)
[2024-01-01] MEDS ORDERED: LevoFLOXacin 500 MG TABLET PO SCH (07:15)
[2024-01-01] MEDS ORDERED: LevoFLOXacin 750 MG TABLET PO ONE (07:15)
[2024-01-01 07:55] VITALS: O2SAT 89
[2024-01-01 08:19] VITALS: BP 168/72
[2024-01-01 10:24] LABS: PROCALCITONIN 0.31 ng/ml
[2024-01-01 11:55] LABS: HEPATITIS B SURFACE ANTIBODY NEGATIVE (POSITIVE)
[2024-01-01 12:07] LABS: HEPATITIS B SURFACE ANTIGEN NEGATIVE (NEGATIVE)
[2024-01-01 12:28] LABS: HEPATITIS B CORE ANTIBODY IGM NEGATIVE (NEGATIVE); HEPATITIS C VIRUS ABY INDEX < 0.02 INDEX (<0.8)
[2024-01-01 12:41] VITALS: BP 182/82; O2SAT 99
[2024-01-01 12:48] VITALS: BP 182/82
[2024-01-01] MEDS: **hydrALAZINE** 50 MG TAB PO ONE (12:48)
[2024-01-01 14:00] VITALS: BP 174/72; TEMP 97.9; O2SAT 96
[2024-01-01] MEDS ORDERED: **hydrALAZINE** 50 MG TAB PO SCH (21:00)
== END 2024-01-01 15:09 | disposition home or self-care (01) | DRG 871 ==
LOC: M ED 14:29 → M ED INP 18:58 → ENRESERV 20:34 → M PCU 21:38 → M MSPAV 12-05 17:18
PROVIDERS: ADMIT Family Medicine; ATTEND Student in an Organized Health Care Education/Training Program
PROC: 0DBN8ZX Excision of Sigmoid Colon, Via Natural or Artificial Opening Endoscopic, Diagnostic (ICD-10-PCS; 2023-12-11)
PROC: 0DJ08ZZ Inspection of Upper Intestinal Tract, Via Natural or Artificial Opening Endoscopic (ICD-10-PCS; 2023-12-11)
PROC: 30233N1 Transfusion of Nonautologous Red Blood Cells into Peripheral Vein, Percutaneous Approach (ICD-10-PCS; 2023-12-12)
PROC: 0DBP8ZX Excision of Rectum, Via Natural or Artificial Opening Endoscopic, Diagnostic (ICD-10-PCS; 2023-12-20)
PROC: 0DJ08ZZ Inspection of Upper Intestinal Tract, Via Natural or Artificial Opening Endoscopic (ICD-10-PCS; 2023-12-20)
PROC: 3E0G8GC Introduction of Other Therapeutic Substance into Upper GI, Via Natural or Artificial Opening Endoscopic (ICD-10-PCS; 2023-12-20)
PROC: 3E0G8GC Introduction of Other Therapeutic Substance into Upper GI, Via Natural or Artificial Opening Endoscopic (ICD-10-PCS; principal; 2023-12-20 13:30)
DX: A41.9 Sepsis, unspecified organism (principal); N18.6 End stage renal disease; U07.1 COVID-19; K55.039 Acute (reversible) ischemia of large intestine, extent unspecified; A04.71 Enterocolitis due to Clostridium difficile, recurrent; I13.2 Hypertensive heart and chronic kidney disease with heart failure and with stage 5 chronic kidney disease, or end stage renal disease; I50.32 Chronic diastolic (congestive) heart failure; Z68.41 Body mass index [BMI] 40.0-44.9, adult; E46 Unspecified protein-calorie malnutrition; E87.1 Hypo-osmolality and hyponatremia; J98.11 Atelectasis; J90 Pleural effusion, not elsewhere classified; I27.20 Pulmonary hypertension, unspecified; J45.909 Unspecified asthma, uncomplicated; E87.6 Hypokalemia; E03.9 Hypothyroidism, unspecified; E78.5 Hyperlipidemia, unspecified; G47.33 Obstructive sleep apnea (adult) (pediatric); E66.01 Morbid (severe) obesity due to excess calories; D63.1 Anemia in chronic kidney disease; E83.51 Hypocalcemia; E88.09 Other disorders of plasma-protein metabolism, not elsewhere classified; E83.42 Hypomagnesemia; K63.89 Other specified diseases of intestine; K76.0 Fatty (change of) liver, not elsewhere classified; B96.81 Helicobacter pylori [H. pylori] as the cause of diseases classified elsewhere; I95.89 Other hypotension; E11.649 Type 2 diabetes mellitus with hypoglycemia without coma; E87.70 Fluid overload, unspecified; R60.1 Generalized edema; E11.22 Type 2 diabetes mellitus with diabetic chronic kidney disease; K21.9 Gastro-esophageal reflux disease without esophagitis; Z92.21 Personal history of antineoplastic chemotherapy; Z92.3 Personal history of irradiation; Z85.42 Personal history of malignant neoplasm of other parts of uterus; Z88.0 Allergy status to penicillin; Z88.2 Allergy status to sulfonamides; Z88.8 Allergy status to other drugs, medicaments and biological substances; Z79.899 Other long term (current) drug therapy; Z79.4 Long term (current) use of insulin; K57.90 Diverticulosis of intestine, part unspecified, without perforation or abscess without bleeding; D50.9 Iron deficiency anemia, unspecified

== ENCOUNTER 2024-01-01 15:13 | Outpatient (CLI) | payer MEDICARE, OTHER ==
[~2024-01-01] VITALS: Ht 149.9 cm; Wt 97.2 kg
[~2024-01-01 15:13] MED LIST changes: +DIFI200T PO; +HYDR100T26 PO
[2024-01-01 15:30] VITALS: BP 149/79; O2SAT 95
[2024-01-01] MEDS: BEZLOTOXUMAB 1,000 MG in NS 100 ML IV ONE (16:11)
[2024-01-01 17:11] VITALS: BP 167/77; O2SAT 95
== END 2024-01-01 17:15 ==
LOC: M INFU 15:13
PROVIDERS: ATTEND Student in an Organized Health Care Education/Training Program
DX: A04.71 Enterocolitis due to Clostridium difficile, recurrent (principal); Z88.0 Allergy status to penicillin; Z88.2 Allergy status to sulfonamides; Z88.8 Allergy status to other drugs, medicaments and biological substances

== ENCOUNTER 2024-01-30 15:56 | Emergency (ER) | payer MEDICARE, OTHER ==
[~2024-01-30] VITALS: Ht 149.9 cm; Wt 86.3 kg
[2024-01-30] MEDS ORDERED: LISI20TA33 (16:13)
[2024-01-30 17:45] VITALS: BP 143/72; TEMP 98.9; O2SAT 95
[2024-01-30] MEDS ORDERED: BENZ200C70 PO (18:38)
[2024-01-30] MEDS ORDERED: MUCI600T31 PO (18:38)
[2024-01-30] MEDS ORDERED: ALBU2.5V10 NEB (18:39)
== END 2024-01-30 18:45 | disposition home or self-care (01) ==
LOC: M ED 15:56
DX: J02.9 Acute pharyngitis, unspecified (principal); B34.8 Other viral infections of unspecified site; H65.01 Acute serous otitis media, right ear; Z88.0 Allergy status to penicillin; Z88.2 Allergy status to sulfonamides; Z88.1 Allergy status to other antibiotic agents; Z79.02 Long term (current) use of antithrombotics/antiplatelets; Z79.52 Long term (current) use of systemic steroids; Z79.810 Long term (current) use of selective estrogen receptor modulators (SERMs); Z79.899 Other long term (current) drug therapy

== ENCOUNTER 2024-03-04 12:53 | Emergency (ER) | payer MEDICARE, OTHER ==
[~2024-03-04] VITALS: Ht 149.9 cm; Wt 84.1 kg
[~2024-03-04 12:53] MED LIST changes: +ALBU2.5V10 NEB; +BENZ200C70 PO; +LISI20TA33; +MUCI600T31 PO
[2024-03-04] MEDS ORDERED: SEMA0.257 (13:13)
[2024-03-04 13:55] LABS: BASO % 0.6 % (0.0-1.0); EOS # 0.1 10^3/uL (0.0-0.5); EOS % 2.8 % (0.0-3.0); HEMATOCRIT 29.7 % (36.0-47.0); HEMOGLOBIN 9.6 g/dl (12.0-15.5); LYMPH # 1.2 10^3/uL (1.5-5.0); LYMPH % 24.6 % (24.0-44.0); MEAN CORPUSCULAR HEMOGLOBIN 30.2 pg (27.0-33.0); MEAN CORPUSCULAR HGB CONC 32.3 g/dl (32.0-36.5); MEAN CORPUSCULAR VOLUME 93.4 fl (80.0-96.0); MONO # 0.3 10^3/uL (0.0-0.8); MONO % 5.9 % (2.0-8.0); NEUTROPHILS # 3.1 10^3/uL (1.5-8.5); NEUTROPHILS % 65.7 % (36.0-66.0); PLATELET COUNT, AUTOMATED 142 10^3/uL (150-450); RED BLOOD COUNT 3.18 10^6/uL (4.00-5.40); WHITE BLOOD COUNT 4.7 10^3/uL (4.0-10.0)
[2024-03-04 14:24] LABS: BLOOD UREA NITROGEN 52 MG/DL (9-23); CALCIUM LEVEL 8.5 MG/DL (8.3-10.6); CARBON DIOXIDE LEVEL 26 MMOL/L (20-31); CHLORIDE LEVEL 100 MMOL/L (98-107); CK-MB VALUE MASS < 1.0 NG/ML (<3.6); GLOMERULAR FILTRATION RATE 10.8 (>39); GLUCOSE, FASTING 184 MG/DL (74-106); MAGNESIUM LEVEL 1.9 MG/DL (1.8-2.4); POTASSIUM SERUM 4.2 MMOL/L (3.5-5.1); SODIUM LEVEL 134 MMOL/L (136-145)
[2024-03-04 14:26] LABS: FREE T4 1.57 NG/DL (0.89-1.76); THYROID STIMULATING HORMONE 0.143 uIU/ML (0.55-4.78)
[2024-03-04 14:33] LABS: CPK CREATINE PHOSPHOKINASE 24 U/L (34-145); MB/CK RELATIVE INDEX 4.16 (< OR =4)
[2024-03-04 15:24] LABS: CK-MB VALUE MASS < 1.0 NG/ML (<3.6)
[2024-03-04 15:31] LABS: CPK CREATINE PHOSPHOKINASE < 15 U/L (34-145)
[2024-03-04] MEDS ORDERED: HYDR25TA87 PO (15:47)
[2024-03-04 16:00] VITALS: BP 160/72; TEMP 96.9; O2SAT 99
== END 2024-03-04 16:04 | disposition home or self-care (01) ==
LOC: EDBD 12:53 → M ED 12:53
DX: I95.9 Hypotension, unspecified (principal); R55 Syncope and collapse; E11.9 Type 2 diabetes mellitus without complications; J45.909 Unspecified asthma, uncomplicated; I11.9 Hypertensive heart disease without heart failure; N18.6 End stage renal disease; I50.20 Unspecified systolic (congestive) heart failure; E78.5 Hyperlipidemia, unspecified; M54.50 Low back pain, unspecified; Z85.42 Personal history of malignant neoplasm of other parts of uterus; Z88.0 Allergy status to penicillin; Z88.2 Allergy status to sulfonamides; Z79.899 Other long term (current) drug therapy; Z88.1 Allergy status to other antibiotic agents; Z99.2 Dependence on renal dialysis; Z79.01 Long term (current) use of anticoagulants; Z79.4 Long term (current) use of insulin

== ENCOUNTER 2024-04-11 21:23 | Observation (INO) | payer MEDICARE, OTHER ==
[~2024-04-11] VITALS: Ht 149.9 cm; Wt 90.9 kg
[~2024-04-11 21:23] MED LIST changes: +HYDR25TA87 PO; +SEMA0.257
[2024-04-11 22:12] LABS: BASO # 0.1 10^3/uL (0.0-0.2); BASO % 0.7 % (0.0-1.0); EOS # 0.1 10^3/uL (0.0-0.5); EOS % 0.8 % (0.0-3.0); HEMATOCRIT 30.4 % (36.0-47.0); HEMOGLOBIN 9.8 g/dl (12.0-15.5); LYMPH # 1.3 10^3/uL (1.5-5.0); LYMPH % 12.4 % (24.0-44.0); MEAN CORPUSCULAR HEMOGLOBIN 31.7 pg (27.0-33.0); MEAN CORPUSCULAR HGB CONC 32.2 g/dl (32.0-36.5); MEAN CORPUSCULAR VOLUME 98.4 fl (80.0-96.0); MONO # 0.8 10^3/uL (0.0-0.8); NEUTROPHILS # 7.7 10^3/uL (1.5-8.5); NEUTROPHILS % 76.9 % (36.0-66.0); PLATELET COUNT, AUTOMATED 199 10^3/uL (150-450); RED BLOOD COUNT 3.09 10^6/uL (4.00-5.40); WHITE BLOOD COUNT 10.1 10^3/uL (4.0-10.0)
[2024-04-11 22:27] LABS: LIPASE 20 U/L (12-53)
[2024-04-11 22:29] LABS: ALBUMIN 2.8 G/DL (3.2-5.2); ALKALINE PHOSPHATASE 158 U/L (46-116); ALT/SGPT 18 U/L (7.0-40); AST/SGOT 14 U/L (<34); BILIRUBIN,DIRECT < 0.1 MG/DL (<0.4); BILIRUBIN,TOTAL 0.2 MG/DL (0.3-1.2); BLOOD UREA NITROGEN 31 MG/DL (9-23); CALCIUM LEVEL 7.9 MG/DL (8.3-10.6); CARBON DIOXIDE LEVEL 23 MMOL/L (20-31); CHLORIDE LEVEL 102 MMOL/L (98-107); CREATININE FOR GFR 3.88 MG/DL (0.55-1.30); GLOMERULAR FILTRATION RATE 12.1 (>39); GLUCOSE, FASTING 265 MG/DL (74-106); POTASSIUM SERUM 5.1 MMOL/L (3.5-5.1); SODIUM LEVEL 133 MMOL/L (136-145); TOTAL PROTEIN 5.5 G/DL (5.7-8.2)
[2024-04-11 23:21] LABS: HEMATOCRIT 28.9 % (36.0-47.0); HEMOGLOBIN 9.3 g/dl (12.0-15.5); MEAN CORPUSCULAR HEMOGLOBIN 31.8 pg (27.0-33.0); MEAN CORPUSCULAR HGB CONC 32.2 g/dl (32.0-36.5); PLATELET COUNT, AUTOMATED 182 10^3/uL (150-450); RED BLOOD COUNT 2.92 10^6/uL (4.00-5.40); WHITE BLOOD COUNT 10.4 10^3/uL (4.0-10.0)
[2024-04-12] VITALS (13 sets, daily range): BP systolic 94–119; BP diastolic 47–55; TEMP 97–98.2; O2SAT 92–100
[2024-04-12] MEDS ORDERED: BRIM2OPD OU (01:22)
[2024-04-12] MEDS ORDERED: TIMO0.5S20 OU (01:22)
[2024-04-12] MEDS ORDERED: SEMA0.257 SC (01:22)
[2024-04-12] MEDS ORDERED: RISATAB3 PO (01:22)
[2024-04-12] MEDS ORDERED: ALBU2.5V10 INH (01:22)
[2024-04-12] MEDS ORDERED: HYDR-4571 PO (01:22)
[2024-04-12] MEDS ORDERED: ERGO500029 PO (01:22)
[2024-04-12] MEDS ORDERED: GLUCOSE 4 GM CHEW PO PRN (01:45)
[2024-04-12] MEDS ORDERED: MED REC IN PROGRESS XX SCH (01:45)
[2024-04-12] MEDS ORDERED: ALBUTEROL SULFATE 2.5MG/0.5ML INH NEB SOLN INH PRN (01:45)
[2024-04-12] MEDS ORDERED: GLUCAGON INJ 1MG VIAL SC PRN (01:45)
[2024-04-12] MEDS ORDERED: FLUTICASONE PROP 0.05% NASAL SPRAY 16 GM (FLONASE) NARES PRN (01:45)
[2024-04-12] MEDS ORDERED: ACETAMINOPHEN TAB 650MG DOSE (2X325MG) PO PRN (01:45)
[2024-04-12] MEDS ORDERED: ALBUTEROL 90 MCG/ACT 8GM HFA INHALER INH PRN (01:45)
[2024-04-12] MEDS ORDERED: DEXTROSE 50% 50ML SYRINGE IV PRN (01:45)
[2024-04-12 02:13] LABS: HEMATOCRIT 31.3 % (36.0-47.0); HEMOGLOBIN 9.6 g/dl (12.0-15.5); MEAN CORPUSCULAR HEMOGLOBIN 31.1 pg (27.0-33.0); MEAN CORPUSCULAR HGB CONC 30.7 g/dl (32.0-36.5); MEAN CORPUSCULAR VOLUME 101.3 fl (80.0-96.0); PLATELET COUNT, AUTOMATED 177 10^3/uL (150-450); RED BLOOD COUNT 3.09 10^6/uL (4.00-5.40); WHITE BLOOD COUNT 9.7 10^3/uL (4.0-10.0)
[2024-04-12] MEDS ORDERED: ELIQ2.5T PO (02:18)
[2024-04-12] MEDS ORDERED: ACETAMINOPHEN *IV* 1,000 MG in IV 1 EA IV PRN (02:55)
[2024-04-12] MEDS: ONDANSETRON 4MG 2ML VIAL IV PRN (03:14)
[2024-04-12] MEDS: NORCO, ANEXSIA 5/325MG TABLET (HYDROcodone/ACETAMINOPHEN) PO PRN (03:14)
[2024-04-12] MEDS: LIDOCAINE 5% (LIDODERM) PATCH TD SCH (03:51)
[2024-04-12] MEDS: LEVOTHYROXINE 75MCG TABLET (0.075MG) PO SCH (06:22)
[2024-04-12] MEDS: INSULIN LISPRO (NovoLOG) PER UNIT SC SCH (06:24)
[2024-04-12] MEDS: NS 1,000 ML IV ONE (07:20)
[2024-04-12] MEDS: LACTOBACILLUS ACIDOPHILUS CAP (BACID) PO SCH (08:01)
[2024-04-12] MEDS: MONTELUKAST 10 MG TAB PO SCH (08:01)
[2024-04-12] MEDS: DOCUSATE SODIUM 100MG CAPSULE PO SCH (08:01)
[2024-04-12] MEDS: PANTOPRAZOLE 40MG VIAL IV SCH (08:02)
[2024-04-12] MEDS: ROSUVASTATIN 10 MG TAB (CRESTOR) PO SCH (08:02)
[2024-04-12 08:08] LABS: BASO # 0.1 10^3/uL (0.0-0.2); BASO % 0.6 % (0.0-1.0); EOS # 0.1 10^3/uL (0.0-0.5); EOS % 1.1 % (0.0-3.0); LYMPH # 1.1 10^3/uL (1.5-5.0); LYMPH % 13.4 % (24.0-44.0); MEAN CORPUSCULAR HEMOGLOBIN 31.3 pg (27.0-33.0); MEAN CORPUSCULAR HGB CONC 32.3 g/dl (32.0-36.5); MEAN CORPUSCULAR VOLUME 97.2 fl (80.0-96.0); MONO # 0.8 10^3/uL (0.0-0.8); MONO % 9.7 % (2.0-8.0); NEUTROPHILS # 5.8 10^3/uL (1.5-8.5); NEUTROPHILS % 73.5 % (36.0-66.0); PLATELET COUNT, AUTOMATED 176 10^3/uL (150-450); RED BLOOD COUNT 3.19 10^6/uL (4.00-5.40); WHITE BLOOD COUNT 7.9 10^3/uL (4.0-10.0)
[2024-04-12 08:35] LABS: ALBUMIN 2.7 G/DL (3.2-5.2); BILIRUBIN,TOTAL 0.2 MG/DL (0.3-1.2); CALCIUM LEVEL 8.2 MG/DL (8.3-10.6); CREATININE FOR GFR 4.46 MG/DL (0.55-1.30); GLOMERULAR FILTRATION RATE 10.3 (>39); TOTAL PROTEIN 5.3 G/DL (5.7-8.2)
[2024-04-12] MEDS: TIMOLOL MALEATE 0.5% OPHTH SOLN 5 ML OU SCH (09:00)
[2024-04-12] MEDS: BRIMONIDINE 0.15% OPHTH SOLN 5 ML OU SCH (09:00)
[2024-04-12] MEDS: CREON-12 CAPSULE (PANCRELIPASE) PO SCH (09:22)
[2024-04-12] MEDS: buPROPion (WELLBUTRIN SR) 100 MG SR TAB PO SCH (09:23)
[2024-04-12] MEDS ORDERED: HEPARIN 1,000UNITS/ML 10ML VIAL (FOR RADIOLOGY & DIALYSIS ONLY) IV PRN (09:40)
[2024-04-12] MEDS ORDERED: SODIUM CHLORIDE 0.9% 1000ML IV PRN (09:40)
[2024-04-12] MEDS ORDERED: LIDOCAINE 1% SDV 5ML VIAL SC PRN (09:40)
[2024-04-12] MEDS ORDERED: HEPARIN 1,000UNITS/ML 10ML VIAL (FOR RADIOLOGY & DIALYSIS ONLY) As Ordered ONE (10:59)
[2024-04-12] MEDS ORDERED: LIDOCAINE 1% MDV 20ML VIAL As Ordered ONE (10:59)
[2024-04-12] MEDS ORDERED: VANCOMYCIN 1000MG/20ML VIAL As Ordered ONE (11:22)
[2024-04-12] MEDS: NS 1,000 ML IV SCH (11:25)
[2024-04-12] MEDS ORDERED: MIDAZOLAM INJ 2MG/2ML VIAL As Ordered ONE (11:40)
[2024-04-12] MEDS ORDERED: fentaNYL 100 MCG/2 ML INJECTION As Ordered ONE (11:40)
[2024-04-12] MEDS ORDERED: ISOVUE-300 61% 100ML VIAL As Ordered ONE (11:43)
[2024-04-12] MEDS: VANCOMYCIN HCL 1,000 MG, VIAL MATE ADAPTER 1 EACH in NS 250 ML IV ONE (11:45)
[2024-04-12 13:20] LABS: HEMATOCRIT 31.4 % (36.0-47.0)
[2024-04-12 18:23] LABS: HEMATOCRIT 25.8 % (36.0-47.0); HEMOGLOBIN 8.5 g/dl (12.0-15.5)
[2024-04-12] MEDS: MORPHINE 2 MG/ML 1ML VIAL IV PRN (21:00)
[2024-04-12] MEDS: AMITRIPTYLINE 25MG TABLET PO SCH (21:36)
[2024-04-12] MEDS: GABAPENTIN 100 MG CAP PO SCH (21:37)
[2024-04-12] MEDS: LATANOPROST 0.005% OPHTH SOLN 2.5 ML OU SCH (21:37)
[2024-04-13] VITALS (10 sets, daily range): BP systolic 103–133; BP diastolic 49–75; TEMP 97.5–98.3; O2SAT 93–97
[2024-04-13 04:30] LABS: BASO % 0.5 % (0.0-1.0); EOS # 0.1 10^3/uL (0.0-0.5); EOS % 2.1 % (0.0-3.0); HEMATOCRIT 29.5 % (36.0-47.0); HEMOGLOBIN 9.7 g/dl (12.0-15.5); LYMPH # 1.1 10^3/uL (1.5-5.0); LYMPH % 20.2 % (24.0-44.0); MEAN CORPUSCULAR HGB CONC 32.9 g/dl (32.0-36.5); MEAN CORPUSCULAR VOLUME 94.2 fl (80.0-96.0); MONO # 0.6 10^3/uL (0.0-0.8); MONO % 11.3 % (2.0-8.0); NEUTROPHILS # 3.6 10^3/uL (1.5-8.5); NEUTROPHILS % 64.8 % (36.0-66.0); PLATELET COUNT, AUTOMATED 151 10^3/uL (150-450); RED BLOOD COUNT 3.13 10^6/uL (4.00-5.40); WHITE BLOOD COUNT 5.6 10^3/uL (4.0-10.0)
[2024-04-13 04:52] LABS: CALCIUM LEVEL 7.2 MG/DL (8.3-10.6); CREATININE FOR GFR 3.37 MG/DL (0.55-1.30); GLOMERULAR FILTRATION RATE 14.3 (>39); MAGNESIUM LEVEL 1.6 MG/DL (1.8-2.4)
[2024-04-13] MEDS ORDERED: SODIUM CHLORIDE 0.9% 1000ML IV PRN (06:00)
[2024-04-13] MEDS ORDERED: HEPARIN 1,000UNITS/ML 10ML VIAL (FOR RADIOLOGY & DIALYSIS ONLY) XX SCH (06:00)
[2024-04-13] MEDS ORDERED: HEPARIN 1,000UNITS/ML 10ML VIAL (FOR RADIOLOGY & DIALYSIS ONLY) IV PRN (06:00)
[2024-04-13] MEDS ORDERED: MAG SULF 1GM/100ML (MAG RUN) 1 GM in IV 1 EA IV SCH (08:00)
[2024-04-13] MEDS: HEPARIN 1,000UNITS/ML 10ML VIAL (FOR RADIOLOGY & DIALYSIS ONLY) XX SCH (08:40)
[2024-04-13] MEDS: MOM 30ML SUSPENSION UDC PO PRN (12:30)
[2024-04-13] MEDS: MAG SULF 1GM/100ML (MAG RUN) 1 GM in IV 1 EA IV SCH (12:33)
[2024-04-13 12:34] LABS: HEMATOCRIT 32.6 % (36.0-47.0); HEMOGLOBIN 10.6 g/dl (12.0-15.5)
[2024-04-13] MEDS ORDERED: NYSTATIN 100,000 UNITS/GM TOPICAL PWD 15GM TOP PRN (15:45)
[2024-04-13] MEDS: FLUCONAZOLE 50MG TABLET PO ONE (17:56)
[2024-04-13 18:39] LABS: HEMATOCRIT 35.1 % (36.0-47.0); HEMOGLOBIN 11.3 g/dl (12.0-15.5)
[2024-04-14 00:39] LABS: HEMATOCRIT 27.3 % (36.0-47.0)
[2024-04-14 00:57] LABS: HEMOGLOBIN 8.8 g/dl (12.0-15.5)
[2024-04-14 01:53] VITALS: BP 109/55; TEMP 99.1; O2SAT 95
[2024-04-14 04:13] VITALS: BP 108/53; TEMP 97.2; O2SAT 93
[2024-04-14 04:32] LABS: BASO % 0.8 % (0.0-1.0); EOS # 0.2 10^3/uL (0.0-0.5); EOS % 3.4 % (0.0-3.0); HEMATOCRIT 30.1 % (36.0-47.0); HEMOGLOBIN 9.7 g/dl (12.0-15.5); LYMPH # 1.5 10^3/uL (1.5-5.0); LYMPH % 28.8 % (24.0-44.0); MEAN CORPUSCULAR HEMOGLOBIN 31.2 pg (27.0-33.0); MEAN CORPUSCULAR HGB CONC 32.2 g/dl (32.0-36.5); MEAN CORPUSCULAR VOLUME 96.8 fl (80.0-96.0); MONO # 0.6 10^3/uL (0.0-0.8); MONO % 10.8 % (2.0-8.0); NEUTROPHILS # 2.8 10^3/uL (1.5-8.5); NEUTROPHILS % 55.6 % (36.0-66.0); PLATELET COUNT, AUTOMATED 133 10^3/uL (150-450); RED BLOOD COUNT 3.11 10^6/uL (4.00-5.40); WHITE BLOOD COUNT 5.1 10^3/uL (4.0-10.0)
[2024-04-14 04:49] LABS: CALCIUM LEVEL 7.6 MG/DL (8.3-10.6); CREATININE FOR GFR 3.12 MG/DL (0.55-1.30); GLOMERULAR FILTRATION RATE 15.6 (>39); MAGNESIUM LEVEL 2.7 MG/DL (1.8-2.4); POTASSIUM SERUM 4.1 MMOL/L (3.5-5.1)
[2024-04-14 08:11] VITALS: BP 111/59; TEMP 98; O2SAT 97
[2024-04-14 12:01] VITALS: BP 126/58; TEMP 98.3; O2SAT 95
[2024-04-14 12:15] LABS: HEMATOCRIT 27.9 % (36.0-47.0)
[2024-04-14] MEDS ORDERED: GLUCAGON INJ 1MG VIAL SC PRN (15:30)
[2024-04-14] MEDS ORDERED: DEXTROSE 50% 50ML SYRINGE IV PRN (15:30)
[2024-04-14] MEDS ORDERED: GLUCOSE 4 GM CHEW PO PRN (15:30)
[2024-04-14 16:30] VITALS: BP 128/58; TEMP 99.5; O2SAT 94
[2024-04-14] MEDS: INSULIN LISPRO (NovoLOG) PER UNIT SC SCH ×2 (17:30→21:00)
[2024-04-14 18:59] LABS: HEMATOCRIT 29.3 % (36.0-47.0); HEMOGLOBIN 9.4 g/dl (12.0-15.5)
[2024-04-14 19:53] VITALS: BP 117/52; TEMP 98.6; O2SAT 96
[2024-04-15 00:44] LABS: HEMATOCRIT 27.1 % (36.0-47.0); HEMOGLOBIN 8.8 g/dl (12.0-15.5)
[2024-04-15 03:07] VITALS: BP 132/66; TEMP 98; O2SAT 95
[2024-04-15 05:56] LABS: CALCIUM LEVEL 7.5 MG/DL (8.3-10.6); CREATININE FOR GFR 4.48 MG/DL (0.55-1.30); GLOMERULAR FILTRATION RATE 10.3 (>39); MAGNESIUM LEVEL 2.5 MG/DL (1.8-2.4); POTASSIUM SERUM 4.4 MMOL/L (3.5-5.1)
[2024-04-15 06:29] LABS: BASO # 0.1 10^3/uL (0.0-0.2); EOS # 0.2 10^3/uL (0.0-0.5); EOS % 3.9 % (0.0-3.0); HEMATOCRIT 29.6 % (36.0-47.0); HEMOGLOBIN 9.4 g/dl (12.0-15.5); LYMPH # 1.4 10^3/uL (1.5-5.0); LYMPH % 27.2 % (24.0-44.0); MEAN CORPUSCULAR HEMOGLOBIN 31.2 pg (27.0-33.0); MEAN CORPUSCULAR HGB CONC 31.8 g/dl (32.0-36.5); MEAN CORPUSCULAR VOLUME 98.3 fl (80.0-96.0); MONO # 0.5 10^3/uL (0.0-0.8); MONO % 10.4 % (2.0-8.0); NEUTROPHILS # 2.9 10^3/uL (1.5-8.5); NEUTROPHILS % 56.7 % (36.0-66.0); PLATELET COUNT, AUTOMATED 127 10^3/uL (150-450); RED BLOOD COUNT 3.01 10^6/uL (4.00-5.40); WHITE BLOOD COUNT 5.2 10^3/uL (4.0-10.0)
[2024-04-15 07:38] VITALS: BP 167/58; TEMP 98; O2SAT 96
[2024-04-15 12:30] LABS: HEMATOCRIT 26.9 % (36.0-47.0); HEMOGLOBIN 8.9 g/dl (12.0-15.5)
[2024-04-15 16:01] VITALS: BP 150/62; TEMP 98.8; O2SAT 99
[2024-04-15 18:43] LABS: HEMATOCRIT 28.5 % (36.0-47.0); HEMOGLOBIN 9.2 g/dl (12.0-15.5)
[2024-04-15 20:00] VITALS: BP 173/71; TEMP 99.3; O2SAT 100
[2024-04-16 00:27] LABS: HEMATOCRIT 26.7 % (36.0-47.0); HEMOGLOBIN 8.7 g/dl (12.0-15.5)
[2024-04-16 05:58] VITALS: BP 154/64; TEMP 97.9; O2SAT 96
[2024-04-16] MEDS ORDERED: HEPARIN 1,000UNITS/ML 10ML VIAL (FOR RADIOLOGY & DIALYSIS ONLY) IV PRN (06:00)
[2024-04-16] MEDS ORDERED: SODIUM CHLORIDE 0.9% 1000ML IV PRN (06:00)
[2024-04-16 06:48] LABS: BASO % 0.8 % (0.0-1.0); EOS # 0.2 10^3/uL (0.0-0.5); EOS % 4.3 % (0.0-3.0); HEMATOCRIT 28.5 % (36.0-47.0); HEMOGLOBIN 9.3 g/dl (12.0-15.5); LYMPH # 1.4 10^3/uL (1.5-5.0); MEAN CORPUSCULAR HEMOGLOBIN 31.3 pg (27.0-33.0); MEAN CORPUSCULAR HGB CONC 32.6 g/dl (32.0-36.5); MONO # 0.5 10^3/uL (0.0-0.8); MONO % 9.8 % (2.0-8.0); NEUTROPHILS # 2.9 10^3/uL (1.5-8.5); NEUTROPHILS % 57.7 % (36.0-66.0); PLATELET COUNT, AUTOMATED 201 10^3/uL (150-450); RED BLOOD COUNT 2.97 10^6/uL (4.00-5.40); WHITE BLOOD COUNT 5.1 10^3/uL (4.0-10.0)
[2024-04-16 07:00] LABS: CALCIUM LEVEL 7.7 MG/DL (8.3-10.6); CREATININE FOR GFR 5.35 MG/DL (0.55-1.30); GLOMERULAR FILTRATION RATE 8.4 (>39); MAGNESIUM LEVEL 2.5 MG/DL (1.8-2.4); POTASSIUM SERUM 4.8 MMOL/L (3.5-5.1)
[2024-04-16 07:36] VITALS: BP 141/63; TEMP 97.4; O2SAT 99
[2024-04-16] MEDS: ACETAMINOPHEN TAB 650MG DOSE (2X325MG) PO PRN (08:06)
[2024-04-16] MEDS: HEPARIN 1,000UNITS/ML 10ML VIAL (FOR RADIOLOGY & DIALYSIS ONLY) XX SCH (09:07)
[2024-04-16 13:04] VITALS: BP 133/58; TEMP 98.1; O2SAT 96
== END 2024-04-16 15:11 | disposition home health service (06) ==
LOC: EDSEX 21:23 → M ED 21:23 → EDBD 21:23 → M ED INP 21:24 → M PCU 04-12 03:20
PROVIDERS: ADMIT Student in an Organized Health Care Education/Training Program; ATTEND Student in an Organized Health Care Education/Training Program
DX: T82.41XA Breakdown (mechanical) of vascular dialysis catheter, initial encounter (principal); M79.81 Nontraumatic hematoma of soft tissue; E87.20 Acidosis, unspecified; J45.909 Unspecified asthma, uncomplicated; E11.9 Type 2 diabetes mellitus without complications; I12.0 Hypertensive chronic kidney disease with stage 5 chronic kidney disease or end stage renal disease; N18.6 End stage renal disease; E03.9 Hypothyroidism, unspecified; E78.5 Hyperlipidemia, unspecified; G47.33 Obstructive sleep apnea (adult) (pediatric); E66.9 Obesity, unspecified; H40.9 Unspecified glaucoma; I50.30 Unspecified diastolic (congestive) heart failure; Z79.01 Long term (current) use of anticoagulants; Z79.4 Long term (current) use of insulin; Z88.0 Allergy status to penicillin; Z88.2 Allergy status to sulfonamides; Z88.1 Allergy status to other antibiotic agents; Z79.899 Other long term (current) drug therapy; F32.A Depression, unspecified
CPT/HCPCS: 36415; 36581; 71045; 74176; 80048; 80053; 80076; 83605; 83690; 83735; 85014; 85018; 85025; 85027; 86850; 86900; 86901; 86920; 93005; 96361; 96374; 96375; 96376; 97161; 99152; 99285; G0257; G0378; J1815; J2250; J2405; J2470; J3010; J3370; J3475; P9016; Q9967

== ENCOUNTER 2024-06-22 15:26 | Emergency (ER) | payer MEDICARE, OTHER ==
[~2024-06-22] VITALS: Ht 149.9 cm; Wt 84.7 kg
[~2024-06-22 15:26] MED LIST changes: +ALBU2.5V10 INH; +BRIM2OPD OU; +ELIQ2.5T PO; +ERGO500029 PO; +HYDR-4571 PO; +RISATAB3 PO; +SEMA0.257 SC; +TIMO0.5S20 OU
[2024-06-22] MEDS: NITROGLYCERIN 0.4MG SUBL TABLET SL PRN (16:16)
[2024-06-22 16:22] LABS: BASO # 0.1 10^3/uL (0.0-0.2); BASO % 1.3 % (0.0-1.0); EOS # 0.2 10^3/uL (0.0-0.5); EOS % 3.4 % (0.0-3.0); HEMATOCRIT 32.3 % (36.0-47.0); HEMOGLOBIN 10.7 g/dl (12.0-15.5); LYMPH # 1.2 10^3/uL (1.5-5.0); LYMPH % 26.4 % (24.0-44.0); MEAN CORPUSCULAR HEMOGLOBIN 30.2 pg (27.0-33.0); MEAN CORPUSCULAR HGB CONC 33.1 g/dl (32.0-36.5); MEAN CORPUSCULAR VOLUME 91.2 fl (80.0-96.0); MONO # 0.5 10^3/uL (0.0-0.8); NEUTROPHILS # 2.8 10^3/uL (1.5-8.5); NEUTROPHILS % 58.7 % (36.0-66.0); PLATELET COUNT, AUTOMATED 149 10^3/uL (150-450); RED BLOOD COUNT 3.54 10^6/uL (4.00-5.40); WHITE BLOOD COUNT 4.7 10^3/uL (4.0-10.0)
[2024-06-22 16:34] LABS: INR 0.94; PARTIAL THROMBOPLASTIN TIME 24.2 SECONDS (24.8-34.2); PROTHROMBIN TIME 12.9 SECONDS (12.5-14.5)
[2024-06-22 16:53] LABS: CK-MB VALUE MASS < 1.0 NG/ML (<3.6); LIPASE 30 U/L (12-53)
[2024-06-22 16:55] LABS: ALBUMIN 2.6 G/DL (3.2-5.2); ALKALINE PHOSPHATASE 166 U/L (35-104); ALT/SGPT < 9 U/L (7.0-40); AST/SGOT 13 U/L (<34); BILIRUBIN,DIRECT 0.1 MG/DL (<0.4); BILIRUBIN,TOTAL 0.3 MG/DL (0.3-1.2); BLOOD UREA NITROGEN 10 MG/DL (9-23); CALCIUM LEVEL 8.4 MG/DL (8.3-10.6); CARBON DIOXIDE LEVEL 27 MMOL/L (20-31); CHLORIDE LEVEL 106 MMOL/L (98-107); CREATININE FOR GFR 1.32 MG/DL (0.55-1.30); GLOMERULAR FILTRATION RATE 42.1 (>39); GLUCOSE, FASTING 78 MG/DL (74-106); POTASSIUM SERUM 3.2 MMOL/L (3.5-5.1); SODIUM LEVEL 140 MMOL/L (136-145); TOTAL PROTEIN 5.7 G/DL (5.7-8.2)
[2024-06-22 16:57] LABS: FREE T4 1.91 NG/DL (0.89-1.76); THYROID STIMULATING HORMONE 0.023 uIU/ML (0.55-4.78)
[2024-06-22 16:59] LABS: CPK CREATINE PHOSPHOKINASE 23 U/L (34-145); MB/CK RELATIVE INDEX 4.34 (< OR =4)
[2024-06-22 18:05] LABS: CK-MB VALUE MASS < 1.0 NG/ML (<3.6)
[2024-06-22 18:06] LABS: CPK CREATINE PHOSPHOKINASE 18 U/L (34-145); MB/CK RELATIVE INDEX 5.55 (< OR =4)
[2024-06-22 18:10] VITALS: TEMP 98.1
[2024-06-22 19:07] VITALS: BP 198/92
[2024-06-22] MEDS: **hydrALAZINE HCL** 25 MG TAB PO ONE (19:07)
[2024-06-22 19:38] LABS: CK-MB VALUE MASS < 1.0 NG/ML (<3.6)
[2024-06-22 19:39] LABS: CPK CREATINE PHOSPHOKINASE < 15 U/L (34-145)
[2024-06-22 20:01] VITALS: BP 164/68; O2SAT 97
[2024-06-22] MEDS ORDERED: HYDR25TA87 PO (20:12)
== END 2024-06-22 20:23 | disposition home or self-care (01) ==
LOC: M ED 15:26 → EDBD 15:26 → M ED 20:23
DX: R07.9 Chest pain, unspecified (principal); I10 Essential (primary) hypertension; I44.4 Left anterior fascicular block; I49.1 Atrial premature depolarization; E11.9 Type 2 diabetes mellitus without complications; E78.5 Hyperlipidemia, unspecified; J45.909 Unspecified asthma, uncomplicated; N18.6 End stage renal disease; Z86.79 Personal history of other diseases of the circulatory system; Z88.0 Allergy status to penicillin; Z88.1 Allergy status to other antibiotic agents; Z88.2 Allergy status to sulfonamides; Z79.52 Long term (current) use of systemic steroids; Z79.4 Long term (current) use of insulin; Z79.899 Other long term (current) drug therapy

== ENCOUNTER 2024-07-20 12:22 | Emergency (ER) | payer MEDICARE, OTHER ==
[~2024-07-20] VITALS: Ht 149.9 cm; Wt 84.7 kg
[2024-07-20 13:23] LABS: HEMATOCRIT 30.3 % (36.0-47.0); HEMOGLOBIN 9.8 g/dl (12.0-15.5); MEAN CORPUSCULAR HEMOGLOBIN 29.6 pg (27.0-33.0); MEAN CORPUSCULAR HGB CONC 32.3 g/dl (32.0-36.5); MEAN CORPUSCULAR VOLUME 91.5 fl (80.0-96.0); PLATELET COUNT, AUTOMATED 206 10^3/uL (150-450); RED BLOOD COUNT 3.31 10^6/uL (4.00-5.40); WHITE BLOOD COUNT 3.9 10^3/uL (4.0-10.0)
[2024-07-20 13:38] LABS: ALBUMIN 2.9 G/DL (3.2-5.2); BILIRUBIN,DIRECT 0.2 MG/DL (<0.4); BILIRUBIN,TOTAL 0.5 MG/DL (0.3-1.2); CALCIUM LEVEL 8.2 MG/DL (8.3-10.6); CREATININE FOR GFR 3.9 MG/DL (0.55-1.30); GLOMERULAR FILTRATION RATE 12.1 (>39); POTASSIUM SERUM 4.5 MMOL/L (3.5-5.1); TOTAL PROTEIN 6.4 G/DL (5.7-8.2)
[2024-07-20 13:43] LABS: ATYPICAL LYMPH 1 % (0-5); BASOPHILS 3 % (0-1); EOSINOPHILS 1 % (0-3); LYMPHOCYTES 14 % (16-44); METAMYELOCYTES 1 % (0-0); MONOCYTES 1 % (0-5); MYELOCYTES 1 % (0-0); NEUTROPHILS 56 % (28-66)
[2024-07-20] MEDS: ACETAMINOPHEN 325 MG TAB PO ONE (13:43)
[2024-07-20 13:47] LABS: ANISOCYTOSIS 1+; PLATELET ESTIMATE NORMAL (NORMAL); TEAR DROP CELLS 1+
[2024-07-20 13:48] LABS: POIKILOCYTOSIS 1+; SCHISTOCYTES 1+
[2024-07-20] MEDS: VANCOMYCIN/WATER FOR INJ (PEG) 1,750 MG in IV 1 EA IV ONE (14:45)
[2024-07-20 14:48] LABS: PROCALCITONIN 1.52 ng/ml
[2024-07-20] MEDS ORDERED: PROHANCE 279.3MG/ML 15ML VIAL As Ordered ONE (16:42)
[2024-07-20] MEDS: NS 500 ML IV ONE (19:40)
[2024-07-20] MEDS: cefTRIAXone SOD 2 GM in DEXTROSE 5% (D5W) ADV/MINI-BAG 50 ML IV ONE (19:40)
[2024-07-20 20:57] VITALS: BP 118/56; TEMP 97.8; O2SAT 98
== END 2024-07-20 21:18 | disposition short-term general hospital (02) ==
LOC: EDBD 12:22 → M ED 12:22
DX: M46.26 Osteomyelitis of vertebra, lumbar region (principal); G95.81 Conus medullaris syndrome; M48.061 Spinal stenosis, lumbar region without neurogenic claudication; M47.896 Other spondylosis, lumbar region; I44.4 Left anterior fascicular block; I49.2 Junctional premature depolarization; E11.9 Type 2 diabetes mellitus without complications; K21.9 Gastro-esophageal reflux disease without esophagitis; E78.5 Hyperlipidemia, unspecified; I10 Essential (primary) hypertension; N18.6 End stage renal disease; Z98.84 Bariatric surgery status; Z86.79 Personal history of other diseases of the circulatory system; Z88.0 Allergy status to penicillin; Z88.1 Allergy status to other antibiotic agents; Z88.2 Allergy status to sulfonamides; Z79.52 Long term (current) use of systemic steroids; Z79.4 Long term (current) use of insulin; Z79.899 Other long term (current) drug therapy
CPT/HCPCS: 51701; 71045; 72158; 80048; 80076; 81001; 83605; 83690; 84145; 85025; 87040; 87077; 87154; 87186; 87486; 87581; 87633; 87798; 93005; 93041; 96365; 96366; 99285; A9576; J0696; J3372

== ENCOUNTER → 2024-08-05 | Outpatient (REF) | payer MEDICARE, OTHER | LOC: M LAB REF 15:52 | PROVIDERS: ATTEND Surgery | DX: D17.1 Benign lipomatous neoplasm of skin and subcutaneous tissue of trunk (principal) ==

== ENCOUNTER → 2024-10-03 | Outpatient (CLI) | payer MEDICARE, OTHER ==
[~2024-10-03] VITALS: Ht 149.9 cm; Wt 81.0 kg
[~2024-10-03] MED LIST changes: +HEPARIN 1,000UNITS/ML 10ML VIAL (FOR RADIOLOGY & DIALYSIS ONLY) As Ordered ONE; +ISOVUE-300 61% 100ML VIAL As Ordered ONE; +LEVO50TA5 PO; +LIDOCAINE 1% MDV 20ML VIAL As Ordered ONE; +MIDAZOLAM INJ 2MG/2ML VIAL As Ordered ONE; +NIFE1TAB52 PO; +fentaNYL 100 MCG/2 ML INJECTION As Ordered ONE
[2024-10-03 07:55] VITALS: TEMP 98.5
[2024-10-03] MEDS: NS 250 ML IV SCH (08:37)
[2024-10-03] MEDS: MIDAZOLAM INJ 2MG/2ML VIAL IV SCH (08:41)
[2024-10-03] MEDS: fentaNYL 100 MCG/2 ML INJECTION IV ONE (08:42)
[2024-10-03] MEDS: ISOVUE-300 61% 100ML VIAL IV ONE (09:18)
[2024-10-03] MEDS: LIDOCAINE 1% MDV 20ML VIAL SC ONE (09:18)
[2024-10-03 10:00] VITALS: BP 172/76; O2SAT 95
== END ==
LOC: M IRPRO 07:47
PROVIDERS: ATTEND Internal Medicine Nephrology
DX: N18.9 Chronic kidney disease, unspecified (principal); T82.858A Stenosis of other vascular prosthetic devices, implants and grafts, initial encounter
CPT/HCPCS: 36902; 99152; 99153; J2250; J3010; Q9967

== ENCOUNTER → 2025-02-19 | Outpatient (CLI) | payer MEDICARE, OTHER ==
[~2025-02-19] MED LIST changes: +BUPR-670 PO; -BUPR1TAB52 PO; -HEPARIN 1,000UNITS/ML 10ML VIAL (FOR RADIOLOGY & DIALYSIS ONLY) As Ordered ONE; -ISOVUE-300 61% 100ML VIAL As Ordered ONE; -LIDOCAINE 1% MDV 20ML VIAL As Ordered ONE; -MIDAZOLAM INJ 2MG/2ML VIAL As Ordered ONE; -fentaNYL 100 MCG/2 ML INJECTION As Ordered ONE
[2025-02-19 12:28] LABS: CREATININE FOR GFR 3.29 MG/DL (0.55-1.30); GLOMERULAR FILTRATION RATE 14.3 (>39)
== END ==
LOC: M WUC 09:06
PROVIDERS: ATTEND Nurse Practitioner Family
DX: N28.89 Other specified disorders of kidney and ureter (principal); R19.4 Change in bowel habit; R19.7 Diarrhea, unspecified; K86.89 Other specified diseases of pancreas

== ENCOUNTER → 2025-02-19 | Outpatient (REF) | payer MEDICARE, OTHER ==
[2025-02-28 01:39] LABS: PANCREATIC ELASTASE STOOL 206 mcg/g (>200)
[2025-02-28 02:05] LABS: CALPROTECTIN STOOL 12 mcg/g (<50)
== END ==
LOC: M LAB REF 11:48
DX: R19.4 Change in bowel habit (principal); K86.89 Other specified diseases of pancreas; R19.7 Diarrhea, unspecified

== ENCOUNTER → 2025-04-08 | Outpatient (CLI) | payer MEDICARE, OTHER ==
[~2025-04-08] MED LIST changes: +LIDOCAINE 1% MDV 20 ML VIAL SC SCH; +MIDAZOLAM INJ 2 MG/2 ML VIAL IV PRN; +NS (Normal Saline) 0.9% 1,000 ML IV SCH
[2025-04-08 09:41] VITALS: TEMP 98.4
[2025-04-08 10:15] VITALS: BP 152/67; O2SAT 99
[2025-04-08] MEDS: LIDOCAINE 1% MDV 20 ML VIAL SC SCH (10:29)
== END ==
LOC: M IRPRO 09:18
PROVIDERS: ATTEND Internal Medicine Nephrology
DX: N18.6 End stage renal disease (principal)

== ENCOUNTER → 2025-05-12 | Outpatient (CLI) | payer MEDICARE, OTHER ==
[~2025-05-12] MED LIST changes: -LIDOCAINE 1% MDV 20 ML VIAL SC SCH; -MIDAZOLAM INJ 2 MG/2 ML VIAL IV PRN; -NS (Normal Saline) 0.9% 1,000 ML IV SCH
[2025-05-12 18:49] LABS: CHOLESTEROL LEVEL 148.0 MG/DL (<200); CHOLESTEROL RISK RATIO 1.87 (<5); LDL CHOLESTEROL 51.1 MG/DL (<100); NON-HDL-C 68.9 MG/DL; TRIGLYCERIDES LEVEL 89.0 MG/DL (<150)
[2025-05-12 19:17] LABS: ESTIMATED AVERAGE GLUCOSE 154.0 MG/DL (60-110)
== END ==
LOC: M WUC 13:55
PROVIDERS: ATTEND Physician Assistant
DX: Z51.81 Encounter for therapeutic drug level monitoring (principal); Z79.4 Long term (current) use of insulin; E11.65 Type 2 diabetes mellitus with hyperglycemia

== ENCOUNTER → 2025-07-30 | Outpatient (REF) | payer MEDICARE, OTHER ==
[~2025-07-30] MED LIST changes: +FAMO40TA3
[2025-07-30 18:07] LABS: RSV AMPLIFICATION NEGATIVE (NEGATIVE)
== END ==
LOC: M SFHCCLAY 17:04
PROVIDERS: ATTEND Physician Assistant
DX: R50.9 Fever, unspecified (principal)